=== PATIENT | female | born 1960 | race Caucasian/White ===

== ENCOUNTER → 2016-07-27 | Outpatient (CLI) | payer OTHER ==
[~2016-07-27] MED LIST: ALBU17AE3; BUTA1TAB55 PO; EST1.25T; ESTROGEN; LISI20TA PO; LSNP10T; SULF1TAB38
--- NOTE | 2016-07-28 13:49 | Diagnostic Imaging Report ---
EXAMINATION: Bilateral screening mammogram with a Computer Aided Detection (CAD) system. INDICATION: Screening. PERSONAL HISTORY: No current complaints stated on the questionnaire. COMPARISON: 04/15/2015. FINDINGS: The breasts are composed of heterogeneously dense parenchyma which may decrease mammographic sensitivity. Benign-appearing calcifications are seen. Allowing for technique and positional differences, no suspicious change is seen. IMPRESSION: No significant change. ACR BI-RADS Category 2: Benign findings. Result letter will be mailed to the patient. Note: At least 10% of breast cancer is not imaged by mammography. Dictated by: Dictated on workstation # [id number]
== END ==
LOC: RAD 11:39
PROVIDERS: ATTEND Internal Medicine
DX: Z12.31 Encounter for screening mammogram for malignant neoplasm of breast (principal)
CPT/HCPCS: 77067

== ENCOUNTER → 2016-08-10 | Outpatient (CLI) | payer OTHER ==
--- NOTE | 2016-08-10 15:38 | Diagnostic Imaging Report ---
PROCEDURE: CT abdomen and pelvis without contrast. TECHNIQUE: Multiple contiguous axial images were obtained through the abdomen and pelvis without the use of intravenous contrast. INDICATION: Left lower quadrant pain. FINDINGS: The lung bases demonstrate no significant abnormality. The liver demonstrates significant areas of hypodensity in geographic distribution favored to be related to fatty infiltration. The spleen is not enlarged. The pancreas and the adrenal glands appear unremarkable. Fluid-attenuation lesion measuring 4.7 cm is seen in the upper pole of the right kidney likely related to a simple cyst. Other low-attenuation foci in the kidneys are probably also cystic. These lesions however are incompletely characterized on this unenhanced exam, and evaluation with ultrasound for confirmation of the cystic nature is suggested. The left kidney demonstrates an upper pole nonobstructing 4-mm stone. There is no hydronephrosis. No ureteric or bladder stones. There are radiopaque markers near the groin area bilaterally and around the urinary bladder. Correlate with past surgical history. There is suggestion of prior hysterectomy. There is mild thickening in the sigmoid colon with no significant surrounding inflammatory changes. No evidence of diverticulitis. A few diverticula are seen. This is favored to be related to a nonspecific colitis. Followup colonoscopy is suggested to rule out other mucosal lesion. The appendix is normal. The abdominal aorta is normal in caliber. No para-aortic significantly enlarged lymph node. No significant free fluid or fluid collection in the abdomen or pelvis. The osseous structures demonstrate degenerative changes in the lower lumbar spine and sacroiliac joints. IMPRESSION: 1. Relatively long segment of wall thickening in the sigmoid colon is seen, may relate to inflammatory or infectious colitis. Endoscopic evaluation is suggested. 2. Geographic large areas of hypodensity in the liver likely related to fatty infiltration. 3. Non-obstructive 4-mm upper pole left kidney stone. Report was faxed to office of Dr. Perez @ 3:37 PM/rene. Dictated by: Dictated on workstation # [id number]
== END ==
LOC: RAD 12:16
PROVIDERS: ATTEND Surgery
DX: N20.0 Calculus of kidney (principal)
CPT/HCPCS: 74176

== ENCOUNTER 2016-08-26 06:01 | Outpatient (CLI) | payer OTHER ==
[~2016-08-26] VITALS: Ht 157.5 cm; Wt 90.7 kg
[2016-08-26] MEDS ORDERED: OMEP20TA33 PO (10:12)
== END 2016-08-26 10:33 ==
LOC: PREOP 06:01
PROVIDERS: ATTEND Surgery
DX: Z01.818 Encounter for other preprocedural examination (principal); K63.9 Disease of intestine, unspecified

== ENCOUNTER 2016-08-30 09:11 | Day surgery (SDC) | payer OTHER ==
[~2016-08-30] VITALS: Ht 157.5 cm; Wt 90.7 kg
[~2016-08-30 09:11] MED LIST changes: +OMEP20TA33 PO
[2016-08-30] MEDS ORDERED: FLUMAZENIL (ROMAZICON) 0.1 MG/ML 5 ML VIAL INJ PRN (09:30)
[2016-08-30] MEDS ORDERED: NALOXONE 0.4 MG/ML 1 ML (NARCAN) VIAL IVP PRN (09:30)
[2016-08-30] MEDS ORDERED: NS IV 500 ML 500 ML IV PRN (09:40)
[2016-08-30 09:44] VITALS: BP 157/85
--- NOTE | 2016-08-30 10:02 | Conscious Sedation/ASA ---
Conscious Sedation Pre-Proced Time Reviewed: 10:02 ASA Class: 2 Airway Mallampati Classification: (twenty-nine palms appropriate class) I. II. III, IV Lungs Heart ASA score ASA 1: a normal healthy patient ASA 2: a patient with a mild systemic disease (mid diabetes, controlled hypertension, obesity ASA 3: a patient with a severe systemic disease that limits activity (angina , COPD, prior Myocardial infarction) ASA 4: a patient with an incapacitating disease that is a constant threat to life (CHF, renal failure) ASA 5: a moribund patient not expected to survive 24 hrs. (ruptured aneurysm) ASA 6: a declared brain patient whose organs are being harvested. For emergent operations, add the letter E after the classification Grade 2 Sedation Plan: Discussed options with patient/fam Note The patient is an appropriate candidate to undergo the planned procedure, sedation, and anesthesia. The patient immediately re-assessed prior to indication. ADRIANA ALFREDO MD Aug 30, 2016 10:02 am
[2016-08-30] MEDS ORDERED: MIDAZOLAM 2 MG/2 ML (VERSED) VIAL ONE ×3 (11:06)
[2016-08-30] MEDS ORDERED: fentaNYL INJECTION 100 MCG/2 ML AMP ONE ×2 (11:06)
[2016-08-30] MEDS: fentaNYL INJECTION 100 MCG/2 ML AMP IVP PRN ×3 (11:13→11:20)
[2016-08-30] MEDS: MIDAZOLAM 2 MG/2 ML (VERSED) VIAL IVP PRN ×3 (11:14→11:18)
--- NOTE | 2016-08-30 11:34 | Endoscopy Procedure Report ---
Endoscopy Report Date: Aug 30, 2016 Preoperative Diagnosis: Left lower quadrant pain. Abnormal CT Study Performed: Colonoscopy Procedure Instrument: Colonoscope Endo Procedure/Findings Findings 1.: Diverticulitis Copy Copies To 1: CHERELLE CABRAL XAVIER M MD Aug 30, 2016 11:34 am
--- NOTE | 2016-08-30 11:35 | Discharge Inst-Simple/Standard ---
Discharge Inst-Standard Discharge Medications New, Converted or Re-Newed RX: RX on Chart Patient Instructions/Follow Up Plan of Care/Instructions/FU: Please call for Flagyl 500 mg 3 times a day for 1 week with no refill to her pharmacy ; follow up with me in 3 weeks Activity as Tolerated: Yes Discharge Diet: No Restrictions ADRIANA ALFREDO MD Aug 30, 2016 11:35 am
[2016-08-30 11:55] VITALS: BP 143/74
[2016-08-30 12:25] VITALS: BP 163/96
[2016-08-30 12:50] VITALS: BP 163/96
--- NOTE | 2016-08-31 05:05 | OPERATIVE REPORT ---
DATE OF SERVICE: 08/30/2016 PROCEDURE: Colonoscopy. SURGEON: Adriana Alfredo MD INDICATION FOR PROCEDURE: This lady reported pain over the left side of the abdomen and the groin. Hernia was ruled out by clinical examination and a CT scan. This study, however, showed thickening of the sigmoid colon. Therefore, colonoscopy was felt to be reasonable. Informed consent was obtained after reviewing the procedure in detail. DESCRIPTION OF PROCEDURE: She was placed in left lateral decubitus position and her vital signs were monitored. Conscious sedation was achieved using Versed and fentanyl. Digital rectal examination was unremarkable. The colonoscope was then introduced into the rectum and advanced all the way up to the cecum. The scope was then withdrawn slowly and the mucosa examined in a systematic fashion. FINDINGS: Sigmoid diverticulosis with erythema around some of the diverticulae, indicating resolving diverticulitis. The rest of the colon was normal. She tolerated the procedure well and was taken back to the nursing area in a stable condition. IMPRESSION: Left lower quadrant pain, possibly due to resolving diverticulitis. We will treat conservatively. Job ID: [id number] DocumentID: [id number] Dictated Date: 08/30/2016 11:32:31 Log Hooker Date: 08/30/2016 12:46:41 Dictated By: ADRIANA ALFREDO MD MTDD
== END 2016-08-30 12:50 | disposition home or self-care (01) ==
LOC: ENDO 09:11
PROVIDERS: ATTEND Surgery
DX: K57.30 Diverticulosis of large intestine without perforation or abscess without bleeding (principal); R10.32 Left lower quadrant pain

== ENCOUNTER → 2016-12-23 | Outpatient (CLI) | payer OTHER ==
[~2016-12-23] MED LIST changes: +ASPI325T32 PO; +ATOR40TA PO; +ESTR-44 TD; +IOHEXOL 350 MG/ML 100 ML (OMNIPAQUE 350) VIAL IV ONE; +NS 100 ML (IVPB) BAG IV ONE; +PROG100C6 PO
--- NOTE | 2016-12-23 10:56 | Diagnostic Imaging Report ---
PROCEDURE: CT chest, abdomen, and pelvis with and without contrast. TECHNIQUE: Precontrast images were obtained of the chest, abdomen, and pelvis. Multiple contiguous axial images were obtained through the chest, abdomen, and pelvis after administration of intravenous contrast. INDICATION: Abdominal pain. Evaluate for pulmonary nodules. COMPARISON: 08/10/2016 FINDINGS: CT CHEST: There is a pulmonary nodule in the right upper lobe measuring 5 mm in size with high density suggestive of calcified component in favor of a calcified granuloma. This is seen just anteriorly, axial image 12. Minimal subsegmental atelectasis is seen in the medial aspect of the right middle lobe. The left lung demonstrates no significant consolidation, or mass. There is minimal atelectasis in the left lung base. The heart size is normal. No pericardial or pleural effusion. There is no lymphadenopathy in the mediastinum, the trevor or in the axilla. The osseous structures demonstrate minimal degenerative changes in the thoracic spine. CT ABDOMEN AND PELVIS: The liver, the spleen, the pancreas, the gallbladder and the adrenal glands appear unremarkable. The kidneys have symmetric enhancement and contrast excretion. 2 mm nonobstructive stone in the upper left kidney is seen. There is no hydronephrosis. There are multiple bilateral renal cysts seen with no solid component identified. These are up to 4.1 cm in size in the upper pole of the right kidney. The abdominal aorta is normal in caliber. No para-aortic significantly enlarged lymph node is seen. Occasional colonic diverticula are seen with no evidence of diverticulitis. The appendix appears unremarkable. No significant free fluid or fluid collection in the abdomen or pelvis is seen. The urinary bladder appears unremarkable. There is suggestion of prior hysterectomy. There are radiopaque markers near the floor of the pelvis, and may relate to prior pelvic floor surgery. Correlate with surgical history. The osseous structures demonstrate mild degenerative changes in the SI joints. IMPRESSION: CT CHEST: A 5 mm relatively dense nodule in the right upper lobe is likely a calcified granuloma. No significant consolidation or suspicious nodule is seen otherwise. CT ABDOMEN AND PELVIS: 1. Mild diverticulosis. No diverticulitis. 2. Nonobstructive upper pole left kidney stone measuring 2 mm. Dictated by: Dictated on workstation # [id number]
--- NOTE | 2016-12-23 13:27 | Diagnostic Imaging Report ---
Ultrasound of the liver. INDICATION: Abdominal pain. FINDINGS: The liver demonstrates increased echogenicity compatible with fatty infiltration. No focal lesion is seen. Hepatopetal flow in the portal vein is seen. The CBD is 7 mm in caliber. The gallbladder demonstrates no stones or wall thickening. The visualized portions of the pancreas appear unremarkable. The right kidney is 9.9 cm in length. There is no hydronephrosis. A minimally complicated cyst with septation is seen in the upper pole measuring 5.7 cm with no solid component seen otherwise. No fluid collection in the upper right abdomen seen. Sonographic Chacon's sign is reportedly negative. IMPRESSION: 1. Liver echogenicity is suggestive of fatty infiltration. 2. No gallstones or evidence of cholecystitis. Dictated by: Dictated on workstation # [id number]
== END ==
LOC: RAD 08:26
PROVIDERS: ATTEND Nurse Practitioner Family
DX: R10.84 Generalized abdominal pain (principal)
CPT/HCPCS: 71270; 74178; 76705

== ENCOUNTER 2017-02-09 10:16 | Observation (INO) | payer OTHER ==
[~2017-02-09] VITALS: Ht 157.5 cm; Wt 93.4 kg
[~2017-02-09 10:16] MED LIST changes: -ASPI325T32 PO; -ATOR40TA PO; -ESTR-44 TD; -IOHEXOL 350 MG/ML 100 ML (OMNIPAQUE 350) VIAL IV ONE; -NS 100 ML (IVPB) BAG IV ONE; -PROG100C6 PO
--- OUTSIDE RECORDS SUMMARY | 2017-02-09 10:34 | XMS REPORT | Continuity of Care Document ---
Author Author [facility] Organization [facility] Address Unknown Phone Unavailable Allergies Active Description Code Type Severity Reaction Onset Reported/Identified Relationship to Patient Clinical Status Yes No Known Drug Allergies [id number] Drug Allergy Unknown N/ A 08/30/2016 Medications Problems Date Dx Coded Attending Type Code Diagnosis Diagnosed By 01/10/2012 Ot 562.10 DIVERTICULOSIS COLON (W/O MENT OF HEMORR 01/10/2012 Ot V76.51 SCREEN MAL NEOP-COLON 03/01/2013 ETIENNE PATEL MD Ot 786.50 03/01/2013 ETINENE PATEL MD Ot V04.81 05/20/2014 NORM CABRAL Ot V76.12 06/20/2014 Ot V76.12 06/20/2014 Ot V76.12 06/20/2014 Ot 782.3 06/20/2014 Ot 785.2 06/20/2014 Ot 786.09 06/20/2014 Ot V72.84 06/20/2014 Ot 241.1 06/20/2014 Ot V76.12 06/20/2014 Ot 780.50 06/20/2014 Ot 786.09 06/20/2014 CHERELLE CABRAL DO Ot 786.50 06/20/2014 DELISA VILLA DO Ot V76.12 06/20/2014 Ot V76.12 06/20/2014 Ot V76.12 06/20/2014 Ot 782.3 06/20/2014 Ot 785.2 06/20/2014 Ot 786.09 06/20/2014 Ot V72.84 06/20/2014 Ot 241.1 06/20/2014 Ot V76.12 06/20/2014 Ot 780.50 06/20/2014 Ot 786.09 06/20/2014 CHERELLE CABRAL DO Ot 786.50 06/20/2014 DELISA VILLA DO Ot V76.12 06/27/2014 Ot V76.12 06/27/2014 Ot V76.12 06/27/2014 Ot 782.3 06/27/2014 Ot 785.2 06/27/2014 Ot 786.09 06/27/2014 Ot V72.84 06/27/2014 Ot 241.1 06/27/2014 Ot V76.12 06/27/2014 Ot 780.50 06/27/2014 Ot 786.09 06/27/2014 CHERELLE CABRAL DO Ot 786.50 06/27/2014 DELISA VILLA DO Ot V76.12 11/05/2014 NORM CABRAL Ot V76.12 04/15/2015 Ot V76.12 04/15/2015 Ot 782.3 04/15/2015 Ot 785.2 04/15/2015 Ot 786.09 04/15/2015 Ot V72.84 04/15/2015 Ot 241.1 04/15/2015 Ot V76.12 04/15/2015 Ot 780.50 04/15/2015 Ot 786.09 04/15/2015 CHERELLE CABRAL DO Ot 786.50 04/15/2015 DELISA VILLA DO Ot V76.12 07/02/2015 JOHN REID DO Ot M25.511 11/28/2015 Ot V76.12 OTH SCREEN MAMMO-MALIGN NEOPLASM OF MONALISA 11/28/2015 Ot 782.3 EDEMA 11/28/2015 Ot 785.2 CARDIAC MURMURS NEC 11/28/2015 Ot 786.09 RESPIRATORY ABNORM NEC 11/28/2015 Ot V72.84 EXAM PRE-OPERATIVE NOS 11/28/2015 Ot 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 11/28/2015 Ot V76.12 OTH SCREEN MAMMO-MALIGN NEOPLASM OF MONALISA 11/28/2015 Ot 780.50 SLEEP DISTURBANCE NOS 11/28/2015 Ot 786.09 RESPIRATORY ABNORM NEC 11/28/2015 CHERELLE CABRAL DO Ot 786.50 CHEST PAIN NOS 11/28/2015 DELISA VILLA DO Ot V76.12 OTH SCREEN MAMMO-MALIGN NEOPLASM OF MONALISA 11/28/2015 CHERELLE CABRAL DO Ot Z12.31 ENCNTR SCREEN MAMMOGRAM FOR MALIGNANT NE 11/28/2015 JOHN REID DO Ot M25.511 PAIN IN RIGHT SHOULDER 12/04/2015 Ot V76.12 OTH SCREEN MAMMO-MALIGN NEOPLASM OF MONALISA 12/04/2015 Ot 782.3 EDEMA 12/04/2015 Ot 785.2 CARDIAC MURMURS NEC 12/04/2015 Ot 786.09 RESPIRATORY ABNORM NEC 12/04/2015 Ot V72.84 EXAM PRE-OPERATIVE NOS 12/04/2015 Ot 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 12/04/2015 Ot V76.12 OTH SCREEN MAMMO-MALIGN NEOPLASM OF MONALISA 12/04/2015 Ot 780.50 SLEEP DISTURBANCE NOS 12/04/2015 Ot 786.09 RESPIRATORY ABNORM NEC 12/04/2015 CHERELLE CABRAL DO Ot 786.50 CHEST PAIN NOS 12/04/2015 DELISA VILLA DO Ot V76.12 OTH SCREEN MAMMO-MALIGN NEOPLASM OF MONALISA 12/04/2015 CHERELLE CABRAL DO Ot Z12.31 ENCNTR SCREEN MAMMOGRAM FOR MALIGNANT NE 12/04/2015 JOHN REID DO Ot M25.511 PAIN IN RIGHT SHOULDER 07/26/2016 Ot 782.3 EDEMA 07/26/2016 Ot 785.2 CARDIAC MURMURS NEC 07/26/2016 Ot 786.09 RESPIRATORY ABNORM NEC 07/26/2016 Ot V72.84 EXAM PRE-OPERATIVE NOS 07/26/2016 Ot 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 07/26/2016 Ot V76.12 OTH SCREEN MAMMO-MALIGN NEOPLASM OF MONALISA 07/26/2016 Ot 780.50 SLEEP DISTURBANCE NOS 07/26/2016 Ot 786.09 RESPIRATORY ABNORM NEC 07/26/2016 CHERELLE CABRAL DO Ot 786.50 CHEST PAIN NOS 07/26/2016 DELISA VILLA DO Ot V76.12 OTH SCREEN MAMMO-MALIGN NEOPLASM OF MONALISA 07/26/2016 CHERELLE CABRAL DO Ot Z12.31 ENCNTR SCREEN MAMMOGRAM FOR MALIGNANT NE 07/26/2016 JOHN REID DO Ot M25.511 PAIN IN RIGHT SHOULDER 07/26/2016 Ot 782.3 EDEMA 07/26/2016 Ot 785.2 CARDIAC MURMURS NEC 07/26/2016 Ot 786.09 RESPIRATORY ABNORM NEC 07/26/2016 Ot V72.84 EXAM PRE-OPERATIVE NOS 07/26/2016 Ot 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 07/26/2016 Ot V76.12 OTH SCREEN MAMMO-MALIGN NEOPLASM OF MONALISA 07/26/2016 Ot 780.50 SLEEP DISTURBANCE NOS 07/26/2016 Ot 786.09 RESPIRATORY ABNORM NEC 07/26/2016 CHERELLE CABRAL DO Ot 786.50 CHEST PAIN NOS 07/26/2016 DELISA VILLA DO Ot V76.12 OTH SCREEN MAMMO-MALIGN NEOPLASM OF MONALISA 07/26/2016 CHERELLE CABRAL DO Ot Z12.31 ENCNTR SCREEN MAMMOGRAM FOR MALIGNANT NE 07/26/2016 ROSI REID DONT L Ot M25.511 PAIN IN RIGHT SHOULDER 07/27/2016 Ot 782.3 EDEMA 07/27/2016 Ot 785.2 CARDIAC MURMURS NEC 07/27/2016 Ot 786.09 RESPIRATORY ABNORM NEC 07/27/2016 Ot V72.84 EXAM PRE-OPERATIVE NOS 07/27/2016 Ot 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 07/27/2016 Ot V76.12 OTH SCREEN MAMMO-MALIGN NEOPLASM OF MONALISA 07/27/2016 Ot 780.50 SLEEP DISTURBANCE NOS 07/27/2016 Ot 786.09 RESPIRATORY ABNORM NEC 07/27/2016 CHERELLE CABRAL DO Ot 786.50 CHEST PAIN NOS 07/27/2016 DELISA VILLA DO Ot V76.12 OTH SCREEN MAMMO-MALIGN NEOPLASM OF MONALISA 07/27/2016 CHERELLE CABRAL DO Ot Z12.31 ENCNTR SCREEN MAMMOGRAM FOR MALIGNANT NE 07/27/2016 ROSI REID DONT L Ot M25.511 PAIN IN RIGHT SHOULDER 07/28/2016 CHERELLE CABRAL DO Ot Z12.31 ENCNTR SCREEN MAMMOGRAM FOR MALIGNANT NE 07/28/2016 CHERELLE CABRAL DO Ot Z12.31 ENCNTR SCREEN MAMMOGRAM FOR MALIGNANT NE 07/28/2016 CHERELLE CABRAL DO Ot Z12.31 ENCNTR SCREEN MAMMOGRAM FOR MALIGNANT NE 08/11/2016 CHERELLE CABRAL DO Ot Z12.31 ENCNTR SCREEN MAMMOGRAM FOR MALIGNANT NE 08/25/2016 SAYDA ADLER, ADRIANA Burt Ot N20.0 CALCULUS OF KIDNEY 08/26/2016 SAYDA ADLER, ADRIANA Burt Ot K63.9 DISEASE OF INTESTINE, UNSPECIFIED 08/26/2016 SAYDA DALER, ADRIANA Burt Ot Z01.818 ENCOUNTER FOR OTHER PREPROCEDURAL EXAMIN 08/27/2016 ADRIANA ALFREDO MD Ot K63.9 DISEASE OF INTESTINE, UNSPECIFIED 08/27/2016 ADRIANA ALFREDO MD Ot Z01.818 ENCOUNTER FOR OTHER PREPROCEDURAL EXAMIN 08/30/2016 ADRIANA ALFREDO MD Ot N20.0 CALCULUS OF KIDNEY 08/30/2016 SAYDA ADLER, ADRIANA Burt Ot K57.30 DVRTCLOS OF LG INT W/O PERFORATION OR AB 08/30/2016 ADRIANA ALFREDO MD Ot R10.32 LEFT LOWER QUADRANT PAIN 08/31/2016 ADRIANA ALFREDO MD Ot K57.30 DVRTCLOS OF LG INT W/O PERFORATION OR AB 08/31/2016 ADRIANA ALFREDO MD Ot R10.32 LEFT LOWER QUADRANT PAIN 09/02/2016 ADRIANA ALFREDO MD, Ot K63.9 DISEASE OF INTESTINE, UNSPECIFIED 09/02/2016 SAYDA ADLER, ADRIANA Burt Ot Z01.818 ENCOUNTER FOR OTHER PREPROCEDURAL EXAMIN 10/19/2016 Ot V72.84 EXAM PRE-OPERATIVE NOS 10/19/2016 Ot 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 10/19/2016 Ot V76.12 OTH SCREEN MAMMO-MALIGN NEOPLASM OF MONALISA 10/19/2016 Ot 780.50 SLEEP DISTURBANCE NOS 10/19/2016 Ot 786.09 RESPIRATORY ABNORM NEC 10/19/2016 CHERELLE CABRAL DO Ot 786.50 CHEST PAIN NOS 10/19/2016 DELISA VILLA DO Ot V76.12 OTH SCREEN MAMMO-MALIGN NEOPLASM OF MONALISA 10/19/2016 CHERELLE CABRAL DO Ot Z12.31 ENCNTR SCREEN MAMMOGRAM FOR MALIGNANT NE 10/19/2016 JOHN REID DO Ot M25.511 PAIN IN RIGHT SHOULDER 10/19/2016 CHERELLE CABRAL DO Ot Z12.31 ENCNTR SCREEN MAMMOGRAM FOR MALIGNANT NE 12/23/2016 ADRIANA ALFREDO MD Ot N20.0 CALCULUS OF KIDNEY 01/05/2017 NORM CABRAL Ot R10.84 GENERALIZED ABDOMINAL PAIN Procedures Results Encounters ACCT No. Visit Date/Time Discharge Status Pt. Type Provider Facility Loc./Unit Complaint [id number] 01/11/2017 16:28:00 2016 23:59:59 CLS Preadmit CHERELLE CABRAL DO [facility] RAD SCREENING [id number] 12/23/2016 08:26:00 2016 23:59:59 CLS Outpatient NORM CABRAL SCLEROSCOPE TESTER [facility] RAD ABD PAIN, ABN LABS [id number] 08/30/2016 09:11:00 2016 12:50:00 DIS Outpatient ADRIANA ALFREDO MD [facility] ENDO ABNORMAL CT/SIGMOID THICKENING [id number] 08/26/2016 06:01:00 2016 10:33:00 DIS Outpatient ADRIANA ALFREDO MD [facility] PREOP ABDNORMAL CT/SIGMOID THICKENING [id number] 08/10/2016 12:16:00 2016 23:59:59 CLS Outpatient ADRIANA ALFREDO MD [facility] RAD LLQ PAIN [id number] 07/27/2016 11:39:00 2016 23:59:59 CLS Outpatient CHERELLE CABRAL DO [facility] RAD SCREENING [id number] 06/24/2015 13:01:00 2015 23:59:59 CLS Outpatient JOHN REID DO [facility] RAD RT SHOULDER PAIN AND WEAKNESS [id number] 04/15/2015 08:55:00 2015 23:59:59 CLS Outpatient CHERELLE CABRAL DO [facility] RAD SCREENING [id number] 01/03/2014 08:02:00 2013 23:59:59 CLS Outpatient DELISA VILLA DO [facility] RAD SCREENING [id number] 07/20/2013 07:29:00 2013 23:59:59 CLS Outpatient CHERELLE CABRAL DO [facility] CARD CP [id number] 03/01/2013 08:20:00 2012 11:05:00 DIS Emergency AMANDA ADLER, ETIENNE Estrada [facility] ER [id number] 12/07/2012 10:52:00 2012 23:59:59 CLS Outpatient NORM CABRAL [facility] RAD [id number] 01/10/2012 07:50:00 Document Registration [id number] 01/07/2012 08:09:00 Document Registration [id number] 12/09/2011 20:10:00 Document Registration [id number] 11/12/2011 10:46:00 Document Registration [id number] 11/12/2011 10:14:00 Document Registration [id number] 04/29/2011 10:14:00 Document Registration [id number] 10/08/2010 11:14:00 Document Registration [id number] 09/08/2009 10:33:00 Document Registration
[2017-02-09 11:00] LABS: BASOPHILS % (AUTO) 1 % (0-10); EOSINOPHILS # (AUTO) 0.1 10^3/uL (0.0-0.3); EOSINOPHILS % (AUTO) 1 % (0-10); LYMPHOCYTES # (AUTO) 1.5 X 10^3 (1.0-4.0); LYMPHOCYTES % (AUTO) 21 % (12-44); MEAN CORPUSCULAR HEMOGLOBIN 29 PG (25-34); MEAN CORPUSCULAR HGB CONC 34 G/DL (32-36); MEAN CORPUSCULAR VOLUME 84 FL (80-99); MEAN PLATELET VOLUME 9.8 FL (7.4-10.4); MONOCYTES # (AUTO) 0.5 X 10^3 (0.0-1.0); MONOCYTES % (AUTO) 7 % (0-12); NEUTROPHILS # (AUTO) 4.9 X 10^3 (1.8-7.8); NEUTROPHILS % (AUTO) 70 % (42-75); PLATELET COUNT 223 10^3/uL (130-400); RED BLOOD COUNT 5.14 10^6/uL (4.35-5.85); RED CELL DISTRIBUTION WIDTH 14.5 % (10.0-14.5)
[2017-02-09 11:04] LABS: INR 0.9 (0.8-1.4); PROTHROMBIN TIME PATIENT 12.2 SEC (12.2-14.7)
--- NOTE | 2017-02-09 11:12 | Diagnostic Imaging Report ---
INDICATION: Left-sided chest pain. FINDINGS: The right lung is clear. There is mild opacity in the left lung base which may be overlying soft tissue attenuation or subtle focal left basilar infiltrate. Lungs otherwise clear. Cardiomediastinal and hilar contour is normal. IMPRESSION: No convincing acute pathology. Vague opacity in the left lung base probably superimposition, however small focus of pneumonia could not be definitively excluded. Otherwise negative. Dictated by: Dictated on workstation # [id number]
[2017-02-09 11:14] LABS: ALANINE AMINOTRANSFERASE 26 U/L (0-55); ALBUMIN 4.1 GM/DL (3.2-4.5); ANION GAP 10 MMOL/L (5-14); ASPARTATE AMINO TRANSFERASE 22 U/L (5-34); BILIRUBIN,TOTAL 0.5 MG/DL (0.1-1.0); BLOOD UREA NITROGEN 24 MG/DL (7-18); BUN/CREATININE RATIO 33; CALCIUM 9.5 MG/DL (8.5-10.1); CARBON DIOXIDE 24 MMOL/L (21-32); CHLORIDE 101 MMOL/L (98-107); CREATININE SERUM 0.73 MG/DL (0.60-1.30); GFR ESTIMATED > 60; GLUCOSE 92 MG/DL (70-105); MAGNESIUM 1.9 MG/DL (1.8-2.4); POTASSIUM 3.8 MMOL/L (3.6-5.0); SODIUM 135 MMOL/L (135-145); TOTAL PROTEIN 7.4 GM/DL (6.4-8.2)
[2017-02-09 11:21] LABS: MYOGLOBIN SERUM 20.8 NG/ML (10.0-92.0)
[2017-02-09] MEDS ORDERED: ASPIRIN 81 MG CHEW (CHILDREN'S ASA) PO ONE (11:45)
[2017-02-09] MEDS ORDERED: NITROGLYCERIN 0.4 MG SL TABS BTL 25'S SL PRN ×2 (11:45→15:30)
--- NOTE | 2017-02-09 12:25 | ED Chest Pain ---
General Chief Complaint: Chest Pain Stated Complaint: CHEST PAIN Nursing Triage Note: PT CO OF CHEST PAIN STARTED APPROX 1 WEEK AGO, PT SENT FROM [facility]. CO OF L CHEST PAIN L SHOULDER PAIN. 08/04 Nursing Sepsis Screen: No Definite Risk Source: patient Exam Limitations: no limitations History of Present Illness Time seen by provider: 10:20 Initial Comments This 56-year-old woman presents to emergency room with intermittent chest pain for about one week. Chest pain this morning started around 06:30. It is sometimes sharp and sometimes dull. She cannot identify any exacerbating or alleviating factors. Her only significant risk factors for heart disease are hypertension and a questionable family history of heart disease in her father who is suspected of having an NV in his 50s. He never required any interventions. She denies any lower extremity symptoms. Pain does not change with deep breathing. Allergies and Home Medications Allergies Coded Allergies: No Known Drug Allergies (Verified , 08/30/16) Home Medications Estradiol 1 Each Patch.tdsw, 0.1 MG TD Th, (Reported) Lisinopril 20 Mg Tablet, 20 MG PO DAILY, (Reported) Omeprazole Magnesium 20 Mg Tablet.dr, 20 MG PO DAILY PRN for HEARTBURN, ( Reported) Progesterone,Micronized 100 Mg Capsule, 100 MG PO HS, (Reported) Review of Systems Constitutional: no symptoms reported EENTM: No Symptoms Reported Respiratory: No Symptoms Reported Cardiovascular: See HPI Gastrointestinal: No Symptoms Reported Genitourinary: No Symptoms Reported Musculoskeletal: no symptoms reported Skin: no symptoms reported Psychiatric/Neurological: No Symptoms Reported Endocrine: No Symptoms Reported Past Ankhino-Edqhji-Zihghl Hx Patient Social History Alcohol Use: Denies Use Recreational Drug Use: No Smoking Status: Never a Smoker Recent Foreign Travel: No Contact w/Someone Who Travel: No Recent Infectious Disease Expo: No Recent Hopitalizations: No Physical Abuse: No Sexual Abuse: No Seasonal Allergies Seasonal Allergies: No Surgeries History of Surgeries: Yes (CS X2) Surgeries: Section, Hysterectomy Respiratory History of Respiratory Disorde: No Cardiovascular History of Cardiac Disorders: Yes Cardiac Disorders: Hypertension Neurological History of Neurological Disord: No Reproductive System : No Hx Reproductive Disorders: No Sexually Transmitted Disease: No HIV/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 Genitourinary History of Genitourinary Disor: Yes Genitourinary Disorders: Kidney Stones Gastrointestinal History of Gastrointestinal Di: Yes Gastrointestinal Disorders: Gastroesophageal Reflux Musculoskeletal History of Musculoskeletal Dis: No Endocrine History of Endocrine Disorders: Yes (RADIATION ON THYROID) Endocrine Disorders: Hyperthyroidism HEENT Loss of Vision: Bilateral Hearing Impairment: Denies Cancer History of Cancer: No Psychosocial History of Psychiatric Problem: No Suicide Risk Score: 0 Integumentary History of Skin or Integumenta: No Blood Transfusions History of Blood Disorders: No Adverse Reaction to a Blood Tr: No (N/A) Family Medical History Significant Family History: Heart Disease Physical Exam Vital Signs Vital Sign - Last 12Hours 02/09/17 10:16 Temp 97.9 Pulse 73 Resp 18 B/P (MAP) 159/79 Pulse Ox 95 O2 Delivery Room Air Capillary Refill : Less Than 3 Seconds General Appearance: No Apparent Distress HEENT: PERRL/EOMI, Normal ENT Inspection Neck: Normal Inspection Respiratory: Chest Non Tender, Lungs Clear, Normal Breath Sounds, No Accessory Muscle Use, No Respiratory Distress Cardiovascular: Regular Rate, Rhythm, No Edema, No Murmur, Normal Peripheral Pulses Gastrointestinal: Normal Bowel Sounds, Non Tender, Soft Extremity: Normal Inspection, Non Tender, No Calf Tenderness, No Pedal Edema, Other (Negative Gladys) Neurologic/Psychiatric: Alert, Oriented x3, No Motor/Sensory Deficits, Normal 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, 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 Skin: Normal Color, Warm/Dry Progress/Results/Core Measures Results/Orders Lab Results Laboratory Tests Test 02/09/17 10:30 Range/Units White Blood Count 7.0 4.3-11.0 10^3/uL Red Blood Count 5.14 4.35-5.85 10^6/uL Hemoglobin 14.8 11.5-16.0 G/DL Hematocrit 43 35-52 % Mean Corpuscular Volume 84 80-99 FL Mean Corpuscular Hemoglobin 29 25-34 PG Mean Corpuscular Hemoglobin Concent 34 32-36 G/DL Red Cell Distribution Width 14.5 10.0-14.5 % Platelet Count 223 130-400 10^3/uL Mean Platelet Volume 9.8 7.4-10.4 FL Neutrophils (%) (Auto) 70 42-75 % Lymphocytes (%) (Auto) 21 12-44 % Monocytes (%) (Auto) 7 0-12 % Eosinophils (%) (Auto) 1 0-10 % Basophils (%) (Auto) 1 0-10 % Neutrophils # (Auto) 4.9 1.8-7.8 X 10^3 Lymphocytes # (Auto) 1.5 1.0-4.0 X 10^3 Monocytes # (Auto) 0.5 0.0-1.0 X 10^3 Eosinophils # (Auto) 0.1 0.0-0.3 10^3/uL Basophils # (Auto) 0.0 0.0-0.1 10^3/uL Prothrombin Time 12.2 12.2-14.7 SEC INR Comment 0.9 0.8-1.4 Activated Partial Thromboplast Time 31 24-35 SEC Sodium Level 135 135-145 MMOL/L Potassium Level 3.8 3.6-5.0 MMOL/L Chloride Level 101 98-107 MMOL/L Carbon Dioxide Level 24 21-32 MMOL/L Anion Gap 10 5-14 MMOL/L Blood Urea Nitrogen 24 H 7-18 MG/DL Creatinine 0.73 0.60-1.30 MG/DL Estimat Glomerular Filtration Rate > 60 BUN/Creatinine Ratio 33 Glucose Level 92 70-105 MG/DL Calcium Level 9.5 8.5-10.1 MG/DL Magnesium Level 1.9 1.8-2.4 MG/DL Total Bilirubin 0.5 0.1-1.0 MG/DL Aspartate Amino Transf (AST/SGOT) 22 5-34 U/L Alanine Aminotransferase (ALT/SGPT) 26 0-55 U/L Alkaline Phosphatase 72 40-136 U/L Myoglobin 20.8 10.0-92.0 NG/ML Troponin I < 0.30 <0.30 NG/ML C-Reactive Protein High Sensitivity 1.26 H 0.00-0.50 MG/DL Total Protein 7.4 6.4-8.2 GM/DL Albumin 4.1 3.2-4.5 GM/DL My Orders Orders - DUNG RIVERO MD Ekg Tracing (02/09/17 10:22) Cbc With Automated Diff (02/09/17 10:55) Magnesium (02/09/17 10:55) Chest 1 View, Ap/Pa Only (02/09/17 10:55) Cardiac Profile 1 (02/09/17 10:55) Comprehensive Metabolic Panel (02/09/17 10:55) Myoglobin Serum (02/09/17 10:55) Protime With Inr (02/09/17 10:55) Partial Thromboplastin Time (02/09/17 10:55) O2 (02/09/17 10:55) Monitor-Rhythm Ecg Trace Only (02/09/17 10:55) Lipid Panel (02/10/17 06:00) Saline Lock/Iv-Start (02/09/17 10:55) Aspirin Chewable Tablet (Baby Aspirin Ch (02/09/17 11:45) Nitroglycerin 0.4 Mg Btl 25's (Nitrostat (02/09/17 11:45) Chest Pa/Lat (2 View) (02/09/17 12:16) Hs C Reactive Protein (02/09/17 12:25) Heart Healthy (02/09/17 Lunch) Medications Given in ED Current Medications Medications Dose Ordered Sig/David Route Start Time Stop Time Status Last Admin Dose Admin Aspirin 324 mg ONCE ONCE PO 02/09/17 11:45 02/09/17 11:46 DC 02/09/17 11:47 324 MG Nitroglycerin 0.4 mg UD PRN SL 02/09/17 11:45 02/09/17 15:15 DC 02/09/17 11:48 0.4 MG Vital Signs/I&O Vital Sign - Last 12Hours 02/09/17 10:16 Temp 97.9 Pulse 73 Resp 18 B/P (MAP) 159/79 Pulse Ox 95 O2 Delivery Room Air Blood Pressure Mean: 105 Progress Note #1: Time: 12:24 Progress Note Patient's pain has improved some but she still has some lingering pain. She is uncertain if the nitroglycerin really help the pain. There is questionable infiltrate on the left lower lung on single view x-ray. X-ray will be repeated with 2 views in the radiology department for clarification. Progress Note #2: Time: 14:26 Progress Note Repeat x-ray showed no acute problems. Patient still had a lingering chest pain throughout her ER visit. She was given options including a four-hour cardiac rule out versus admission for stress testing tomorrow. She elects for admission for stress testing. Case was reviewed with Dr. Campbell and Dr. Thorne. ECG Initial ECG Impression Date: Feb 09, 2017 Initial ECG Impression Time: 10:20 Initial ECG Rate: 74 Initial ECG Rhythm: Normal Sinus Initial ECG Intervals: Normal Initial ECG Impression: Normal Comment Normal sinus rhythm with no ST elevation or depression. Normal normal intervals or axis deviation. No changes from prior. Diagnostic Imaging Diagonstic Imaging: Xray Plain Films/CT/US/NM/MRI: chest Comments Single view chest x-ray viewed by me and report reviewed. See report below: NAME: LINDSAY FAIR [facility] REC#: [id number] PT STATUS: ADM [place] : 1960 PHYSICIAN: DUNG RIVERO MD ADMIT DATE: 02/09/17/ Signed Date of Exam: 02/09/17 CHEST 1 VIEW, AP/PA ONLY INDICATION: Left-sided chest pain. FINDINGS: The right lung is clear. There is mild opacity in the left lung base which may be overlying soft tissue attenuation or subtle focal left basilar infiltrate. Lungs otherwise clear. Cardiomediastinal and hilar contour is normal. IMPRESSION: No convincing acute pathology. Vague opacity in the left lung base probably superimposition, however small focus of pneumonia could not be definitively excluded. Otherwise negative. Dictated by: Dictated on workstation # [id number] Dict: 02/09/17 1106 Trans: 02/09/17 1526 Interpreted by: JIMMY DELCID Electronically signed by: JIMMY DELCID 02/09/17 1526 Diagonstic Imaging: Xray Plain Films/CT/US/NM/MRI: chest Comments Two-view chest x-ray for further evaluation viewed by me and report reviewed. See report below: NAME: LINDSAY FAIR [facility] REC#: [id number] PT STATUS: REG ER : 1960 PHYSICIAN: DUNG RIVERO MD ADMIT DATE: 02/09/17/ER Signed Date of Exam: 02/09/17 CHEST PA/LAT (2 VIEW) INDICATION: Left-sided chest pain PA and lateral chest obtained at 1246 hrs pm, and is compared to same day at 1101 hrs am, portable view. The heart and mediastinal silhouette are normal in appearance. Density over left lung base is probably due to epicardial fat pad. There is no true infiltrate. There is no pneumothorax or pleural fluid. IMPRESSION: No acute process in the chest. Dictated by: Dictated on workstation # [id number] Dict: 02/09/17 1234 Trans: 02/09/17 1338 Interpreted by: CHRIS GUAMAN MD Electronically signed by: CHRIS GUAMAN MD 02/09/17 1338 Departure Communication (Admissions) Time/Spoke to Admitting Phy: 14:[address] Thorne Time/Spoke to Consulting Phy: 14:10 Communication/Consulting Dr. Campbell Impression Impression: Primary Impression: Chest pain Disposition: ADMITTED INPATIENT Condition: Improved Admissions Decision to Admit Reason: Admit from ER (General) Decision to Admit/Date: Feb 09, 2017 Time/Decision to Admit Time: 14:10 Departure-Patient Inst. Referrals: CHERELLE CABRAL DO (PCP/Family) Primary Care Physician DUNG RIVERO MD Feb 09, 2017 12:25
--- NOTE | 2017-02-09 12:37 | Diagnostic Imaging Report ---
INDICATION: Left-sided chest pain PA and lateral chest obtained at 1246 hrs pm, and is compared to same day at 1101 hrs am, portable view. The heart and mediastinal silhouette are normal in appearance. Density over left lung base is probably due to epicardial fat pad. There is no true infiltrate. There is no pneumothorax or pleural fluid. IMPRESSION: No acute process in the chest. Dictated by: Dictated on workstation # [id number]
--- NOTE | 2017-02-09 14:57 | Consultation-Cardiology ---
HPI-Cardiology Cardiology Consultation: Date of Consultation 02/09/17 Date of Admission Attending Physician Maryellen Thorne DO Admitting Physician Clarence Castellon DO Consulting Physician Carmel CAMPBELL MD HPI: Time Seen by Provider: 14:52 Chief Complaint: Chest pain and shortness of breath This is a 56-year-old lady with history of hypertension and family history of premature CAD. She denies having hyperlipidemia and diabetes. She presents with recurrent episode of chest pain and shortness of breath. Her chest pain is substernal and in the left upper chest area radiates to the left arm. No significant exacerbating or relieving factors. Not associated with any significant concomitant cardiac symptoms. The pain is like pressure. Intensity is moderate. She also has shortness of breath with mild to moderate exertion. She denies any other cardiac symptoms including palpitation, near syncope, syncope, lower extremity swelling. Review of Systems-Cardiology Review of Systems Constitutional: No As described under HPI, No no symptoms reported, No chills, No fever, No lightheadedness, No malaise, No tiredness, No weight loss, No weight gain, No other Eyes: No As described under HPI, No no symptoms reported, No blindness, No blurred vision, No contact lenses, No drainage, No decreased acuity, No foreign body sensation, No glasses, No inflammation, No pain, No photophobia, No previous injury, No shadows, No tunnel vision, No other, No vision change Ears/Nose/Throat: No As described under HPI, No no symptoms reported, No chronic hearing loss, No epistaxis, No ear discharge, No ear pain, No loose teeth, No mouth pain, No mouth swelling, No nasal drainage, No nose pain, No recent hearing loss, No throat pain, No throat swelling, No ulcerations, No other Respiratory: shortness of breath Cardiovascular: chest pain Gastrointestinal: No no symptoms reported, No As described under HPI, No abdomen distended, No abdominal pain, No blood streaked bowels, No constipation , No diarrhea, No difficulty swallowing, No nausea, No poor appetite, No poor fluid intake, No rectal bleeding, No vomiting, No other, No nausea/vomiting/ diarrhea, No stool coloration changes Genitourinary: No no symptoms reported, No As described under HPI, No burning, No dysuria, No discharge, No frequency, No flank pain, No hematuria, No incontinence, No pain, No urgency, No other, No urine frequency changes, No urine coloration changes Musculoskeletal: No no symptoms reported, No As describe under HPI, No back pain, No gout, No joint pain, No joint swelling, No muscle pain, No muscle stiffness, No neck pain, No other Skin: No no symptoms reported, No As described under HPI, No change in color, No change in hair/nails, No dryness, No lesions, No lumps, No rash, No other, No skin related problems, No ulcerations, No rash on exposed areas, No ulcerations on exposed areas Psychiatric/Neurological: No no symptoms reported, No As described under HPI, No anxiety, No depression, No emotional problems, No headache, No numbness, No pre-existing deficit, No seizure, No tingling, No tremors, No weakness, No other , No focal weakness, No syncope Hematologic: No no symptoms reported, No As described under HPI, No anemia, No blood clots, No easy bleeding, No easy bruising, No swollen glands, No other, No bleeding abnormalities FHF-Gapuid-Kckupi Hx Patient Social History Alcohol Use: Denies Use Recreational Drug Use: No Smoking Status: Never a Smoker Recent Foreign Travel: No Recent Infectious Disease Expo: No Hospitalization with Isolation: Denies Past Medical History PMH As described under Assessment. Allergies and Home Medications Allergies Coded Allergies: No Known Drug Allergies (Verified , 08/30/16) Home Medications Lisinopril 20 Mg Tablet, 30 MG PO DAILY, (Reported) Omeprazole Magnesium 20 Mg Tablet.dr, 20 MG PO DAILY, (Reported) Physical Exam-Cardiology Physical Exam Vital Signs/I&O Vital Sign - Last 12Hours 02/09/17 10:16 Temp 97.9 Pulse 73 Resp 18 B/P (MAP) 159/79 Pulse Ox 95 O2 Delivery Room Air Capillary Refill : Less Than 3 Seconds Constitutional: No appears stated age, No AAO x 3, No apparent distress, No PERRL, No well-developed, No well-nourished, No other HEENT: No PERRL, No normal ENT inspection, No TMs normal, No pharynx normal, No scleral icterus (R), No scleral icterus (L), No pale conjunctivae (R), No pale conjunctivae (L), No photophobia, No TM abnormal (R), No TM abnormal (L), No pharyngeal erythema, No tonsillar exudate, No other, No discharge, No EOMI, No hearing is well preserved, No hard of hearing, No oral hygience is good, No ulceration, No xanthelasmas are seen Neck: No non-tender, No full range of motion, No supple, No normal inspection, No carotid bruit, No limited range of motion, No lymphadenopathy (R), No lymphadenopathy (L), No tender lateral, No tender midline, No thyromegaly, No other, No carotid pulses are 2 + bilaterally, No with good upstrokes Respiratory: No accessory muscle use, No respiratory distress, No chest tender , No chest expansion is symmetric, No chest is bilaterally symmetric, No lungs clear to percussion, No lungs clear to auscultation, No crackles, No rhonchi, No rales, No stridor, No wheezing, No pleural rub, No other Cardiovascular: No regular rate-rhythm, No irregularly irregular, No extra beats, No parasternal heave is noted, No JVD, No edema, No bradycardia, No tachycardia, No point of maximal impulse, No cardiac thrills are palpable, No S1 and S2, No gallop/S3, No gallop/S4, No diastolic murmur, No systolic murmur, No friction rub, No click, No other Gastrointestinal: No tender, No soft, No round, No distended, No pulsatile mass , No organomegaly, No guarding, No rebound, No tenderness, No hernia, No mass, No audible bowel sounds, No abnormal bowel sounds, No abdominal bruits, No spleenomegaly, No other Rectal: deferred Extremities: No normal range of motion, No non-tender, No normal inspection, No pedal edema, No calf tenderness, No normal capillary refill, No pelvis stable , No calf tenderness, No inflammation, No pedal edema, No slow capillary refill , No swelling, No other, No abrasion, No clubbing, No cyanosis, No ecchymosis, No laceration, No no lower extremity edema bilateral, No significant edema, No tenderness, No wound Neurologic/Psychiatric: No pharmacy informaticist II-XII nml as tested, No no motor/sensory deficits, No alert, No normal mood/affect, No oriented x 3, No abnormal cerebellar tests, No abnormal pharmacy informaticist II-XII, No abnormal gait, No aphasia, No EOM palsy, No facial droop, No motor weakness, No sensory deficit, No depressed affect, No disoriented x 3, No other, No grossly intact, No power is 5/5 both on sides Skin: No normal color, No warm/dry, No cyanosis, No cool, No diaphoresis, No damp, No ecchymosis, No jaundice, No mottled, No pallor, No rash, No tattoos/ piercings, No ulcerations, No rash on exposed areas, No ulcerations on exposed areas, No other Data Review Labs Laboratory Tests 02/09/17 10:30: White Blood Count 7.0, Red Blood Count 5.14, Hemoglobin 14.8, Hematocrit 43, Mean Corpuscular Volume 84, Mean Corpuscular Hemoglobin 29, Mean Corpuscular Hemoglobin Concent 34, Red Cell Distribution Width 14.5, Platelet Count 223, Mean Platelet Volume 9.8, Neutrophils (%) (Auto) 70, Lymphocytes (%) (Auto) 21, Monocytes (%) (Auto) 7, Eosinophils (%) (Auto) 1, Basophils (%) (Auto) 1, Neutrophils # (Auto) 4.9, Lymphocytes # (Auto) 1.5, Monocytes # (Auto) 0.5, Eosinophils # (Auto) 0.1, Basophils # (Auto) 0.0, Prothrombin Time 12.2, INR Comment 0.9, Activated Partial Thromboplast Time 31, Sodium Level 135, Potassium Level 3.8, Chloride Level 101, Carbon Dioxide Level 24, Anion Gap 10, Blood Urea Nitrogen 24H, Creatinine 0.73, Estimat Glomerular Filtration Rate > 60, BUN/Creatinine Ratio 33, Glucose Level 92, Calcium Level 9.5, Magnesium Level 1.9, Total Bilirubin 0.5, Aspartate Amino Transf (AST/SGOT) 22, Alanine Aminotransferase (ALT/SGPT) 26, Alkaline Phosphatase 72, Myoglobin 20.8, Troponin I < 0.30, C-Reactive Protein High Sensitivity 1.26H, Total Protein 7.4 , Albumin 4.1 A/P-Cardiology Assessment/Admission Diagnosis Chest pain, shortness of breath, hypertension. Plan Will rule out acute coronary syndrome with serial troponin. Pharmacological stress test tomorrow. Shortness of breath is unlikely cardiac. His no congestive heart failure on examination. An echocardiogram done earlier in the year was negative, however, she was not having shortness of breath at that point in time. Shortness of breath has started recently. Continue treatment for hypertension. Thank you for your consultation. Please call me if you have any questions. Frank Campbell MD, FACP, FACC, FSCAI, FHRS, CCDS Interventional Cardiology Cardiac Electrophysiology Vascular Medicine and Endovascular Interventions Clinical Quality Measures AMI/AHF: ASA po Prior to arrival: Carmel Don MD Feb 09, 2017 2:57 pm
[2017-02-09] MEDS ORDERED: morphine INJ 4 MG/ML 1 ML (VIAL/SYRINGE) IV PRN (15:30)
[2017-02-09] MEDS ORDERED: PROG100C6 PO (15:52)
[2017-02-09] MEDS ORDERED: ESTR-44 TD (15:52)
[2017-02-09 17:33] VITALS: BP 134/62
[2017-02-09 18:33] VITALS: BP 118/56
[2017-02-09 20:00] VITALS: BP 127/80
[2017-02-10] VITALS: BP 112/52
[2017-02-10 04:00] VITALS: BP 117/58
[2017-02-10 06:48] LABS: CHOLESTEROL 236 MG/DL (< 200); DIRECT LDL 153 MG/DL (1-129); TRIGLYCERIDES 129 MG/DL (<150); VLDL CHOLESTEROL 26 MG/DL (5-40)
[2017-02-10 08:00] VITALS: BP 112/59
[2017-02-10] MEDS ORDERED: ASPIRIN E.C. 325 MG (ECOTRIN) TABLET PO SCH (09:00)
[2017-02-10] MEDS ORDERED: ATORVASTATIN 40 MG (LIPITOR) TABLET PO SCH (09:45)
--- NOTE | 2017-02-10 10:39 | Cardiology Progress Note ---
Cardiology SOAP Progress Note Subjective: no further chest discomfort Objective: I&O/Vital Signs Vital Sign - Last 12Hours 02/10/17 02/10/17 02/10/17 02/10/17 00:00 01:00 04:00 08:00 Temp 98.4 97.6 97.5 Pulse 77 75 75 68 Resp 19 18 24 B/P (MAP) 112/52 117/58 112/59 Pulse Ox 97 93 95 O2 Delivery Room Air Room Air Room Air Weight (Pounds): 206 Weight (Ounces): 0.0 Weight (Calculated Kilograms): 93.232452 Constitutional: No appears stated age, No AAO x 3, No apparent distress, No PERRL, No well-developed, No well-nourished, No other Respiratory: No accessory muscle use, No respiratory distress, No chest tender , No chest expansion is symmetric, No chest is bilaterally symmetric, No lungs clear to percussion, No lungs clear to auscultation, No crackles, No rhonchi, No rales, No stridor, No wheezing, No pleural rub, No other Cardiovascular: No regular rate-rhythm, No irregularly irregular, No extra beats, No parasternal heave is noted, No JVD, No edema, No bradycardia, No tachycardia, No point of maximal impulse, No cardiac thrills are palpable, No S1 and S2, No gallop/S3, No gallop/S4, No diastolic murmur, No systolic murmur, No friction rub, No click, No other Gastrointestional: No tender, No soft, No round, No distended, No pulsatile mass, No organomegaly, No guarding, No rebound, No tenderness, No hernia, No mass, No audible bowel sounds, No abnormal bowel sounds, No abdominal bruits, No spleenomegaly, No other Extremities: No normal range of motion, No non-tender, No normal inspection, No pedal edema, No calf tenderness, No normal capillary refill, No pelvis stable , No calf tenderness, No inflammation, No pedal edema, No slow capillary refill , No swelling, No other, No abrasion, No clubbing, No cyanosis, No ecchymosis, No laceration, No no lower extremity edema bilateral, No significant edema, No tenderness, No wound Neurologic/Psychiatric: No machine paint mixer II-XII nml as tested, No no motor/sensory deficits, No alert, No normal mood/affect, No oriented x 3, No abnormal cerebellar tests, No abnormal machine paint mixer II-XII, No abnormal gait, No aphasia, No EOM palsy, No facial droop, No motor weakness, No sensory deficit, No depressed affect, No disoriented x 3, No other, No grossly intact, No power is 5/5 both on sides Skin: No normal color, No warm/dry, No cyanosis, No cool, No diaphoresis, No damp, No ecchymosis, No jaundice, No mottled, No pallor, No rash, No tattoos/ piercings, No ulcerations, No rash on exposed areas, No ulcerations on exposed areas, No other Results/Procedures: Labs Laboratory Tests 02/09/17 19:00: Troponin I < 0.30 02/10/17 06:05: Triglycerides Level 129, Cholesterol Level 236H, LDL Cholesterol Direct 153H, VLDL Cholesterol 26, HDL Cholesterol 69H A/P: Assessment/Dx: Chest pain, shortness of breath, hypertension, hyperlipidemia Plan: acute coronary syndrome ruled out with serial negative troponin. Unfortunately pharmacological stress test could not be performed today since both of our gamma camera was are out of order. We will schedule as an outpatient on Tuesday morning. Patient was instructed to come to the ER if there is any further chest pain episodes. Shortness of breath is unlikely cardiac. His no congestive heart failure on examination. echocardiogram showed normal LV size and function. Continue treatment for hypertension. significantly elevated lipid profile. Lipitor 40 mg started. Thank you for your consultation. Please call me if you have any questions. Frank Campbell MD, FACP, FACC, FSCAI, FHRS, CCDS Interventional Cardiology Cardiac Electrophysiology Vascular Medicine and Endovascular Interventions Clinical Quality Measures AMI/AHF: ASA po Prior to arrival: Carmel Don MD Feb 10, 2017 10:39 am
[2017-02-10] MEDS ORDERED: ASPI325T32 PO (10:49)
[2017-02-10] MEDS ORDERED: ATOR40TA PO (10:49)
--- NOTE | 2017-02-10 10:58 | Short Stay Summary-Hospitalist ---
HPI History of Present Illness: HPI/Chief Complaint CC: Chest pain HPI: This is a 56 [address] pt of [address] Castellon who presented to ER with chest pain. She was sent to ER from urgent care for chest pain starting one week ago. Apparently she had a father who had heart attack in his early 60s. She was found to need cardiac risk stratification, so stress test is being planned. Patient Interview: Pt denies having major chest pain since admission, but states she tends to consistently have a dull pain anyway. Pt confirms PCP as Dr. Castellon. Pt confirms having heart testing previously. Pt states she had a Ca++ score done, this was at zero. 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 Physical exam stable. Pt confirms seeing Dr. Campbell and having stress test scheduled Tuesday morning. He is okay with DC today. Pt asked about her cholesterol and she states that Dr. Campbell seemed worried about her cholesterol level Pt confirms having her meds reviewed Pt confirms L2C as pharmacy Scribed by Chula Bee under the direct supervision of Dr. Lamb. Source: patient Exam Limitations: no limitations Date Seen 02/10/17 Time Seen by Provider: 11:00 Attending Physician Maryellen Lamb DO PCP Clarence Castellon DO Referring Physician Date of Admission Feb 09, 2017 at 14:22 Home Medications & Allergies Home Medications Reviewed patient Home Medication Reconciliation Form Allergies Allergies Coded Allergies No Known Drug Allergies (Verified08/30/16) Past Gdiqavb-Mhdvso-Cratkw Hx Patient Social History Employed/Student: employed (Names and Numbers) Alcohol Use: Denies Use Recreational Drug Use: No Smoking Status: Never a Smoker Physical Abuse Screen: No Sexual Abuse: No Recent Foreign Travel: No Contact w/other who traveled: No Recent Hopitalizations: No Recent Infectious Disease Expo: No Immunizations Up To Date Date of Influenza Vaccine: Jan 04, 2017 Seasonal Allergies Seasonal Allergies: No Surgeries Yes (CS X2) Section, Hysterectomy Respiratory No Cardiovascular Yes High Cholesterol, Hypertension Neurological No Reproductive System : No Hx Reproductive Disorders: No Sexually Transmitted Disease: No 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 Review of Systems Constitutional: see HPI EENTM: no symptoms reported Respiratory: no symptoms reported Cardiovascular: chest pain Gastrointestinal: no symptoms reported Genitourinary: no symptoms reported Musculoskeletal: no symptoms reported Skin: no symptoms reported Psychiatric/Neurological: No Symptoms Reported All Other Systems Reviewed Negative Unless Noted: Yes Physical Exam Physical Exam Vital Signs Vital Sign - Last 12Hours 02/09/17 10:16 Temp 97.9 Pulse 73 Resp 18 B/P (MAP) 159/79 Pulse Ox 95 O2 Delivery Room Air Capillary Refill : Less Than 3 Seconds General Appearance: No Apparent Distress, WD/WN, Obese Eyes: Bilateral Eye Normal Inspection, Bilateral Eye PERRL HEENT: PERRL/EOMI, Normal ENT Inspection, Pharynx Normal Neck: Full Range of Motion, Normal Inspection, Non Tender, Supple, Carotid Bruit Respiratory: Chest Non Tender, Lungs Clear, Normal Breath Sounds, No Accessory Muscle Use, No Respiratory Distress Cardiovascular: Regular Rate, Rhythm, No Edema, No Gallop, No JVD, No Murmur, Normal Peripheral Pulses Gastrointestinal: Normal Bowel Sounds, No Organomegaly, No Pulsatile Mass, Non Tender, Soft Back: Normal Inspection, No CVA Tenderness, No Vertebral Tenderness Extremity: Normal Capillary Refill, Normal Inspection, Normal Range of Motion, Non Tender, No Calf Tenderness, No Pedal Edema Neurologic/Psychiatric: Alert, Oriented x3, No Motor/Sensory Deficits, Normal Mood/Affect Skin: Normal Color, Warm/Dry Lymphatic: No Adenopathy Results Results/Procedures Lab Laboratory Tests 02/09/17 10:30 Short Stay Diagnosis Discharge Diagnosis-Short Stay Admission Diagnosis Chest pain with previous cardiac testing negative for ischemia including calcium score but high risk for CAD due to early FH and HLP hx HTN GERD ERT Final Discharge Diagnosis Chest pain with previous cardiac testing negative for ischemia including calcium score but high risk for CAD due to early FH and HLP hx HTN GERD ERT Conclusion Plan Plan: Stress test 02/14/17 Cholesterol medication sent to pharmacy Restart all home meds Diagnosis/Problems Diagnosis/Problems (1) Chest pain Status: Acute Qualifiers: Qualified Codes: R07.9 - Chest pain, unspecified Clinical Quality Measures AMI/AHF: ASA po Prior to arrival: No DVT/VTE Risk/Contraindication: Risk Factor Score Per Nursin RFS Level Per Nursing on Admit: 3=High MARYELLEN LAMB DO Feb 10, 2017 10:58
[2017-02-10] MEDS ORDERED: PANTOPRAZOLE 20 MG TABLET (PROTONIX) PO PRN (11:00)
[2017-02-10] MEDS ORDERED: ESTRADIOL 0.1 MG PATCH (CLIMARA) TD SCH (11:00)
[2017-02-10 11:38] VITALS: BP 112/59
[2017-02-10] MEDS ORDERED: NON-FORMULARY MEDICATION 1 EA EA (Progesterone,Micronized (Progesterone) 100 MG) PO SCH ×2 (21:00)
[2017-02-11] MEDS ORDERED: lisINopril 20 MG (ZESTRIL) TAB PO SCH (09:00)
== END 2017-02-10 11:10 | disposition home or self-care (01) ==
LOC: EDUNIT# 10:16 → ER 10:18 → 4TH 14:22 → UNDOADMOB 14:22 → 4TH 15:30 → UNDODISOB 02-10 11:10
PROVIDERS: ADMIT Internal Medicine; ATTEND Internal Medicine
DX: R07.9 Chest pain, unspecified (principal); I10 Essential (primary) hypertension; K21.9 Gastro-esophageal reflux disease without esophagitis; E05.90 Thyrotoxicosis, unspecified without thyrotoxic crisis or storm; Z79.890 Hormone replacement therapy
CPT/HCPCS: 36415; 71010; 71020; 80053; 80061; 83735; 83874; 84484; 85025; 85610; 85730; 86141; 93005; 93041; 93306

== ENCOUNTER → 2017-02-14 | Outpatient (CLI) | payer OTHER ==
[~2017-02-14] VITALS: Ht 157.5 cm; Wt 94.3 kg
[~2017-02-14] MED LIST changes: +ASPI325T32 PO; +ATOR40TA PO; +ESTR-44 TD; +PROG100C6 PO; +REGADENOSON 0.4 MG/5 ML SYR (LEXISCAN) IV ONE
[2017-02-14] MEDS: CATHETER FLUSH 10 ML SYR IV PRN ×2 (08:05→09:34)
[2017-02-14 09:31] VITALS: BP 158/86
--- NOTE | 2017-02-14 21:20 | STRESS TEST ---
DATE OF SERVICE: 02/14/2017 PHARMACOLOGICAL NUCLEAR STRESS TEST REPORT PERFORMING PHYSICIAN: Dr. Frank Campbell. PRIMARY PHYSICIAN: Dr. Castellon. DIAGNOSIS: Chest pain. PROCEDURE DETAILS: This is a 56-year-old lady who complained of recurrent chest pain. She had a recent hospitalization for chest pain. Pharmacological nuclear stress test was recommended. She was brought to the stress lab after informed consent was taken. All the risks and complications were explained. Lexiscan was given IV 0.4 mg. Low grade exercise was performed. Baseline EKG shows sinus rhythm at 55 BPM. Blood pressure was 158/86 mmHg. Maximum heart rate was 110 BPM and blood pressure was 186/97 mmHg. The patient did not have any chest pain, ST changes, arrhythmias during the stress test. A 10.68 mCi of Myoview were given for rest imaging and 30.8 mCi of Myoview were given for stress imaging. TID was 0.97, ejection fraction 72%. Normal perfusion during stress and rest imaging. Normal wall motion. IMPRESSION/CONCLUSION: 1. Pharmacological nuclear stress test is negative for ischemia. 2. Normal perfusion during stress and rest imaging. 3. Normal LV function with normal wall motion. Job ID: [id number] DocumentID: [id number] Dictated Date: 02/14/2017 15:01:45 Call Center Agent Date: 02/14/2017 18:38:45 Dictated By: JOSEPHINE CAMPBELL MD
== END ==
LOC: CARD 07:45
PROVIDERS: ATTEND Internal Medicine Interventional Cardiology
DX: R07.9 Chest pain, unspecified (principal)
CPT/HCPCS: 78452; 93017

== ENCOUNTER → 2017-03-25 | Outpatient (CLI) | payer OTHER ==
[~2017-03-25] MED LIST changes: -REGADENOSON 0.4 MG/5 ML SYR (LEXISCAN) IV ONE
[2017-03-25] MEDS: IOHEXOL 350 MG/ML 100 ML (OMNIPAQUE 350) VIAL IV ONE (09:12)
[2017-03-25] MEDS: NS 100 ML (IVPB) BAG IV ONE (09:12)
[2017-03-25] MEDS: CATHETER FLUSH 10 ML SYR IV PRN (09:12)
--- NOTE | 2017-03-25 13:00 | Diagnostic Imaging Report ---
PROCEDURE: CT abdomen and pelvis with and without contrast. TECHNIQUE: Precontrast acquisitions were acquired through the abdomen and pelvis. Multiple contiguous axial images were obtained through the abdomen and pelvis after the administration of intravenous contrast. INDICATION: Followup liver lesion. COMPARISON: CT abdomen and pelvis of 12/23/2016. FINDINGS: Lower chest: The lung bases are clear. No pericardial or pleural effusion. Peritoneum: No free intraperitoneal air or fluid. Liver and biliary system: Liver is normal in size with multifocal large geographic areas of hypoattenuation, indicative of fatty infiltration. No hepatic cysts or solid enhancing lesion. The gallbladder is normal. No biliary duct dilation. Spleen and Pancreas: Spleen is normal. The pancreas enhances normally without mass lesion or peripancreatic inflammatory changes. Adrenals: Normal. tract: Pre contrast imaging demonstrates a stable 2 mm nonobstructing stone in the upper pole of the left kidney. Multiple benign simple renal cysts are present bilaterally and are unchanged. The largest is in the upper pole of the right kidney measuring 4.5 x 3.3 cm. No obstructive uropathy. Status post hysterectomy. No adnexal mass. GI tract: Stomach is decompressed. No bowel obstruction. No pericolonic inflammatory changes. Normal appendix. Vasculature and Lymph nodes: Normal caliber aorta. No abdominal or pelvic lymphadenopathy. Musculoskeletal: No concerning osseous lesion. IMPRESSION: 1. Multifocal large regions of hepatic steatosis. No solid or cystic hepatic masses. 2. Multiple benign bilateral renal cysts require no dedicated followup imaging. 3. Stable 2 mm nonobstructing stone in the upper pole of the left kidney. Dictated by: Dictated on workstation # [id number]
== END ==
LOC: RAD 08:44
PROVIDERS: ATTEND Nurse Practitioner Family
DX: K76.0 Fatty (change of) liver, not elsewhere classified (principal); N28.1 Cyst of kidney, acquired; N20.0 Calculus of kidney
CPT/HCPCS: 74178

== ENCOUNTER → 2017-06-06 | Outpatient (CLI) | payer BC, OTHER ==
--- NOTE | 2017-06-06 10:20 | Diagnostic Imaging Report ---
Clinical indication: Patient with mass in the left parietal lobe area x2 years. This area is sometimes painful. Exam: Limited focused ultrasound in the left side of the head area of concern. Comparison: Head CT without IV contrast dated 12/02/2008. 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 This lesion is wider than it is tall and there is no significant central Doppler flow. Considerations may include a sebaceous cyst or calcified granuloma. If there is concern for melanoma, then tissue biopsy would better evaluate. This area does not extend below the area of the calvarium and appears benign. This is not seen on the comparison head CT. Dictated by: Dictated on workstation # [id number]
== END ==
LOC: RAD 08:44
PROVIDERS: ATTEND Nurse Practitioner Family
DX: R22.0 Localized swelling, mass and lump, head (principal)
CPT/HCPCS: 76536

== ENCOUNTER → 2017-07-05 | Outpatient (CLI) | payer BC ==
[~2017-07-05] MED LIST changes: +GADOBUTROL 10 MMOL/10 ML (GADAVIST) VIAL IV ONE
[2017-07-05 12:58] LABS: BUN/CREATININE RATIO 26; GFR ESTIMATED > 60
--- NOTE | 2017-07-05 16:18 | Diagnostic Imaging Report ---
INDICATION: Routine screening. COMPARISON: 07/27/2016 and 04/15/2015. TECHNIQUE: Screening digital mammography was performed bilaterally with a Computer Aided Detection (CAD) system. FINDINGS: Scattered fibroglandular densities are identified bilaterally. A benign-appearing intraparenchymal lymph node in the upper outer right breast is again noted. No spiculated mass or malignant appearing microcalcifications are seen. The axillae are unremarkable. IMPRESSION: No mammographic features suspicious for malignancy are identified. ACR BI-RADS Category 2: Benign findings. Result letter will be mailed to the patient. Note: At least 10% of breast cancer is not imaged by mammography. Dictated by: Dictated on workstation # [id number]
--- NOTE | 2017-07-05 16:33 | Diagnostic Imaging Report ---
PROCEDURE: MR imaging of the brain with and without contrast. TECHNIQUE: Multiplanar/multisequence MR imaging of the brain was performed with and without contrast. INDICATION: Headaches and dizziness as well as blurred vision. FINDINGS: The ventricles and sulci are within normal limits. There is a tiny focus in the right periventricular white matter on the FLAIR sequences, nonspecific but perhaps owing to chronic microvascular ischemia. No diffusion restriction is seen. No acute intra-axial or extra-axial hemorrhage is seen. The normal expected flow-voids within the carotid siphons are seen. There is no abnormal enhancement following contrast administration. The corpus callosum is unremarkable. The sella and parasellar structures are unremarkable. IMPRESSION: Essentially unremarkable MRI of the brain with and without contrast. Dictated by: Dictated on workstation # [id number]
== END ==
LOC: RAD 12:15
PROVIDERS: ATTEND Internal Medicine
DX: Z12.31 Encounter for screening mammogram for malignant neoplasm of breast (principal); R51 Headache; R42 Dizziness and giddiness; H53.8 Other visual disturbances; R41.3 Other amnesia
CPT/HCPCS: 36415; 70553; 77067; 82565; 84520

== ENCOUNTER → 2018-07-19 | Outpatient (CLI) | payer BC, OTHER ==
[~2018-07-19] MED LIST changes: -GADOBUTROL 10 MMOL/10 ML (GADAVIST) VIAL IV ONE
--- NOTE | 2018-07-19 11:17 | Diagnostic Imaging Report ---
PROCEDURE: US Gallbladder. TECHNIQUE: Multiple Real-time grayscale images were obtained over the right upper quadrant in various projections. INDICATION: Right upper quadrant pain. FINDINGS: There is fatty infiltration of the liver. There is no intrahepatic biliary ductal dilatation. The common bile duct measures 6.8 mm. There is no cholelithiasis, gallbladder wall thickening, or pericholecystic fluid. The pancreas is largely obscured by bowel gas. There is a 4.5 cm cyst in the superior aspect of the right kidney. The kidneys are otherwise unremarkable. There is no ascites. IMPRESSION: Fatty infiltration of the liver. 4.5 cm right renal cyst. Otherwise, unremarkable right upper quadrant ultrasound. Dictated by: Dictated on workstation # [id number]
--- NOTE | 2018-07-19 21:33 | Diagnostic Imaging Report ---
INDICATION: Routine screening. COMPARISON: Prior mammograms from 07/05/2017 and 07/27/2016. EXAMINATION: 2D and 3D bilateral screening mammography was performed with CAD. The current study was also evaluated with a Computer Aided Detection (CAD) system. FINDINGS: Scattered fibroglandular densities are identified, bilaterally. No mass or malignant appearing microcalcifications are seen. There are benign calcifications present. The axillae are unremarkable. IMPRESSION: No mammographic features suspicious for malignancy are identified. ACR BI-RADS Category 2: Benign findings. Result letter will be mailed to the patient. Note: At least 10% of breast cancer is not imaged by mammography. Dictated by: Dictated on workstation # [id number]
== END ==
LOC: RAD 09:26
PROVIDERS: ATTEND Nurse Practitioner Family
DX: Z12.31 Encounter for screening mammogram for malignant neoplasm of breast (principal); K76.0 Fatty (change of) liver, not elsewhere classified; N28.1 Cyst of kidney, acquired
CPT/HCPCS: 76705; 77067

== ENCOUNTER → 2018-08-31 | Outpatient (CLI) | payer BC ==
[~2018-08-31] MED LIST changes: +CATHETER FLUSH 10 ML SYR IV PRN
--- NOTE | 2018-08-31 20:05 | Diagnostic Imaging Report ---
INDICATION: Abdominal pain. DETAILS OF PROCEDURE: Patient was administered 5.2 mCi of technetium-99m Choletec intravenously and imaging of the abdomen was performed. At one hour, patient ingested 8 ounces of Ensure and a gallbladder ejection fraction was calculated. There is homogeneous uptake of activity by the liver with prompt excretion of activity into the common duct and gallbladder. There is normal passage of activity into the small bowel. Gallbladder ejection fraction is abnormally low at 7%. Normal values are 33% or greater. IMPRESSION: 1. Patent cystic duct and common bile duct. 2. Abnormally low gallbladder ejection fraction of 7%. Dictated by: Dictated on workstation # [id number]
== END ==
LOC: CARD 12:23
PROVIDERS: ATTEND Nurse Practitioner Family
DX: R10.816 Epigastric abdominal tenderness (principal)
CPT/HCPCS: 78227

== ENCOUNTER 2018-09-14 14:20 | Outpatient (CLI) | payer BC ==
[~2018-09-14] VITALS: Ht 157.5 cm; Wt 97.5 kg
[~2018-09-14 14:20] MED LIST changes: -CATHETER FLUSH 10 ML SYR IV PRN
[2018-09-14] MEDS ORDERED: ESTR-85 PO (14:47)
[2018-09-15] MEDS ORDERED: ACHD5005 PO (10:58)
[2018-09-15] MEDS ORDERED: DOCU-143 PO (10:58)
== END 2018-09-14 14:57 | disposition home or self-care (01) ==
LOC: PREOP 14:20
PROVIDERS: ATTEND Surgery
DX: Z01.818 Encounter for other preprocedural examination (principal)

== ENCOUNTER 2018-09-15 08:22 | Day surgery (SDC) | payer BC ==
[~2018-09-15] VITALS: Ht 157.5 cm; Wt 97.5 kg
[2018-09-15] VITALS (10 sets, daily range): BP systolic 131–162; BP diastolic 71–89
[~2018-09-15 08:22] MED LIST changes: +ESTR-85 PO
[2018-09-15] MEDS ORDERED: ceFAZolin 2 GM/50 ML NS 50 ML IV ONE (08:45)
--- NOTE | 2018-09-15 09:14 | Progress Note-Pre Operative ---
Pre-Operative Progress Note H&P Reviewed The H&P was reviewed, patient examined and no changes noted. Date Seen by Provider: Sep 15, 2018 Time Seen by Provider: 09:13 Date H&P Reviewed: Sep 15, 2018 Time H&P Reviewed: 09:13 Pre-Operative Diagnosis: RUQ ABD PAIN, BILIARY DYSKINESIA ONUR SLAUGHTER DO Sep 15, 2018 09:14
[2018-09-15] MEDS ORDERED: DEXAMETHASONE 10 MG/ML (DECADRON) 1 ML VIAL ONE (09:19)
[2018-09-15] MEDS ORDERED: proPOfol 200 MG/20 ML (DIPRIVAN) VIAL IV ONE (09:19)
[2018-09-15] MEDS ORDERED: ROCURONIUM 10 MG/ML 5 ML SYRINGE IV ONE (09:19)
[2018-09-15] MEDS ORDERED: ONDANSETRON 4 MG/2 ML (SDV) Z0FRAN ONE ×3 (09:19→11:47)
[2018-09-15] MEDS ORDERED: SEVOFLURANE (ULTANE) 15 ML INHAL SOLN ONE ×2 (09:19→10:46)
[2018-09-15] MEDS ORDERED: LIDOCAINE PF 2% 5 ML (XYLOCAINE) VIAL ONE (09:19)
[2018-09-15] MEDS ORDERED: BUP/EPI 0.5% 1:200,000 (SENSORCAINE) 30 ML VIAL ONE (09:20)
[2018-09-15] MEDS ORDERED: LIDOCAINE 1% INJ 20 ML 20 ML VIAL ONE (09:20)
[2018-09-15] MEDS ORDERED: MIDAZOLAM 2 MG/2 ML (VERSED) VIAL ONE (09:20)
[2018-09-15] MEDS ORDERED: fentaNYL INJECTION 100 MCG/2 ML AMP ONE ×2 (09:20→10:17)
[2018-09-15] MEDS ORDERED: NEOSTIGMINE 1 MG/ML 5 ML SYRINGE ONE (09:26)
[2018-09-15] MEDS ORDERED: GLYCOPYRROLATE 0.2 MG/ML (ROBINUL) 2 ML VIAL ONE (09:26)
[2018-09-15] MEDS: LACTATED RINGERS 1,000 ML IV PRN ×2 (09:30→10:35)
--- NOTE | 2018-09-15 10:56 | Progress Note-Post Operative ---
Post-Operative Progess Note Surgeon (s)/Revenue Field Auditor (s) Surgeon ONUR SLAUGHTER DO Revenue Field Auditor: Dr. Cordoba Pre-Operative Diagnosis RUQ ABD PAIN, BILIARY DYSKINESIA Post-Operative Diagnosis same Procedure & Operative Findings Date of Procedure 09/15/18 Procedure Performed/Findings lap vianey c ioc Anesthesia Type gen Estimated Blood Loss Estimated blood loss (mL): min Specimens/Packing Specimens Removed gallbladder ONUR SLAUGHTER DO Sep 15, 2018 10:56
[2018-09-15] MEDS ORDERED: DOCU-143 PO (10:58)
[2018-09-15] MEDS ORDERED: ACHD5005 PO (10:58)
--- NOTE | 2018-09-15 11:01 | Discharge Inst-Simple/Standard ---
Discharge Inst-Standard Discharge Medications New, Converted or Re-Newed RX: RX on Chart Patient Instructions/Follow Up Plan of Care/Instructions/FU: 2 weeks catherine Activity as Tolerated: No Discharge Diet: Regular Diet Other Inst to Patient Follow up Appt: Make appointment for 2 weeks. Instructions: No lifting greater than 10 pounds. No strenuous activity. May shower in 24 hours, no tub bath or soaking. Use incentive spirometer at home as directed. No Smoking Skin/Wound Care: You have special glue over incisions it will fall off on its own. Symptoms to Report: Appetite Changes, Extremity Discoloration, Numbness/Tingling, Swelling Increased, Bleeding Excessive, Eyesight Changes, Pain Increased, Urine Color Change, Constipation(Persistent), Fever over 101 degree F, Pain/Pressure in ches t, Urinating Difficulty, Cough Up/Vomit Blood, Heart Beat Irreg/Pounding, Pain/Pressure in jaw, Vaginal Bleeding Increase, Cramps in feet or legs, Lightheadedness, Pain/Pressure in shoulder, Diarrhea(Persistent), Memory Changes Suddenly, Questions/Concerns, Weight gain consecutive days, Dizziness/Fainting, Nausea/Vomiting, Shortness of Breath, Weight gain over 2 pounds. If eyes or skin turn yellow notify physician. If questions or concerns contact your physician Or seek help at emergency department. ONUR SLAUGHTER DO Sep 15, 2018 11:01
[2018-09-15] MEDS: ONDANSETRON 4 MG/2 ML (SDV) Z0FRAN IVP PRN ×2 (11:38→11:54)
[2018-09-15] MEDS ORDERED: morphine INJ 10 MG/ML 1ML (SYR OR VIAL) ONE (11:40)
[2018-09-15] MEDS ORDERED: HYDROmorphone 2 MG/ML VIAL (DILAUDID) IV ONE (11:45)
[2018-09-15] MEDS ORDERED: morphine INJ 10 MG/ML 1ML (SYR OR VIAL) IVP ONE (11:45)
[2018-09-15] MEDS ORDERED: PROMETHAZINE INJ 25 MG/ML (PHENERGAN) AMP ONE (12:12)
[2018-09-15] MEDS ORDERED: PROMETHAZINE INJ 25 MG/ML (PHENERGAN) AMP IVP ONE (12:20)
[2018-09-15] MEDS ORDERED: HYDROcodone/APAP 5 MG/325 MG (LORTAB) TAB ONE (12:20)
[2018-09-15] MEDS ORDERED: HYDROcodone/APAP 5 MG/325 MG (LORTAB) TAB PO ONE (12:25)
--- NOTE | 2018-09-15 13:45 | Anesthesia-General Post-Op ---
General Patient Condition Mental Status/LOC: Same as Preop Cardiovascular: Satisfactory Nausea/Vomiting: Absent Respiratory: Satisfactory Pain: Controlled Complications: Absent Post Op Complications Complications None Follow Up Care/Instructions Patient Instructions None needed. Anesthesia/Patient Condition Patient Condition Patient is doing well, no complaints, stable vital signs, no apparent adverse anesthesia problems. No complications reported per nursing. [place] [facility] [place] RACHEL MACE CRNA Sep 15, 2018 13:45
--- NOTE | 2018-09-15 17:03 | OPERATIVE REPORT ---
DATE OF SERVICE: 09/15/2018 PREOPERATIVE DIAGNOSES: Right upper quadrant abdominal pain, biliary dyskinesia. POSTOPERATIVE DIAGNOSES: Right upper quadrant abdominal pain, biliary dyskinesia. PROCEDURE PERFORMED: Laparoscopic cholecystectomy with intraoperative cholangiogram. SURGEON: Onur Fortune DO. DOORMAKER: Sourav Cordoba DO, assisted in retraction, dissection and closure. ANESTHESIA: General. ESTIMATED BLOOD LOSS: Minimal. COMPLICATIONS: None. INDICATIONS: The patient is a 57-year-old female with workup consistent with biliary dyskinesia and symptoms consistent with that as well. She understands risks and benefits of procedure and wished to proceed with procedure. DESCRIPTION OF PROCEDURE: Consent was signed in the chart. The patient was taken to the operating suite, prepped and draped in sterile fashion. Timeout was performed. A midline incision 12 mm just above the umbilicus was made, cautery dissection down to the fascia, which was then scored, grasped and elevated. The abdomen was then entered. A #0 Vicryl was placed in a [id number] fashion for closure at the end of the case. Balloon trocar was inserted and pneumoperitoneum was achieved. Under direct visualization of the laparoscope, a 5 mm trocar was placed in the subxiphoid region and two 5 mm trocars were placed in the right upper quadrant. Gallbladder was grasped, elevated. There were some adhesions that were taken down. The cystic duct and cystic artery were then dissected out. Clips were placed on the proximal and distal portion of the cystic artery. Clips were placed on the distal portion of the cystic duct. The duct was then partially transected. Arrow catheter inserted. A clip was used to hold the catheter up in place. Cholangiogram was performed. There were no filling defects. Contrast made its way into the duodenum without difficulty. Clip was removed. Clips were placed on the proximal portion of the cystic duct and the duct and artery completely transected. Hook cautery used to dissect the gallbladder from the gallbladder fossa achieving hemostasis. Once removed, it was placed in an Endobag and removed through the 12 mm trocar site. Abdomen was irrigated and suctioned. Hemostasis was achieved. The abdomen was desufflated, the trocars were removed. A #0 Vicryl that was previously placed was then tied closing the fascial defect. The skin was then closed using 4-0 Monocryl in a subcuticular fashion. The abdomen was then washed and dried and Skin Affix was placed over the incisions. The patient tolerated procedure well without any complications. She was taken to recovery room in stable condition. Job ID: [id number] DocumentID: [id number] Dictated Date: 09/15/2018 11:08:27 Can Washer Date: 09/15/2018 17:03:33 Dictated By: ONUR FORTUNE DO
--- NOTE | 2018-09-15 18:59 | Diagnostic Imaging Report ---
INDICATION: Fluoroscopy during intraoperative cholangiogram. FINDINGS: Fluoroscopy was provided in the OR during intraoperative cholangiogram. 11 seconds of fluoroscopy was utilized. Images demonstrate contrast being injected via the cystic duct remnant. Intrahepatic and extrahepatic bile ducts are opacified. Extrahepatic duct is somewhat dilated but no filling defects are seen. IMPRESSION: Fluoroscopy during intraoperative cholangiogram. Dictated by: Dictated on workstation # [id number]
== END 2018-09-15 15:10 | disposition home or self-care (01) ==
LOC: SDC 08:22
PROVIDERS: ATTEND Surgery
DX: K81.1 Chronic cholecystitis (principal); I10 Essential (primary) hypertension; K21.9 Gastro-esophageal reflux disease without esophagitis; E66.9 Obesity, unspecified; Z68.39 Body mass index [BMI] 39.0-39.9, adult; Z79.899 Other long term (current) drug therapy
CPT/HCPCS: 87081

== ENCOUNTER → 2019-09-21 | Outpatient (CLI) | payer BC ==
[~2019-09-21] MED LIST changes: +ACHD5005 PO; +DOCU-143 PO; -ESTR-85 PO; +PROG100C11 PO; -PROG100C6 PO; +SYNTEST.HS PO
--- NOTE | 2019-09-21 11:43 | Diagnostic Imaging Report ---
EXAM: Digital mammogram bilateral screening. The current study was also evaluated with a Computer Aided Detection (CAD) system. COMPARISON: This study was compared to the prior exams of 07/19/2018, 07/05/2017 and 07/27/2016. There are no current complaints. FINDINGS: There are scattered fibroglandular densities in both breasts which could obscure a lesion. Overall, there does not appear to have been any significant change when compared to the prior exam. No primary or secondary sign of malignancy is noted. IMPRESSION: There is no radiographic evidence for malignancy. ACR category 1. ACR BI-RADS Category 1: Negative. Result letter will be mailed to the patient. Note: At least 10% of breast cancer is not imaged by mammography. Dictated by: Dictated on workstation # [id number]
== END ==
LOC: RAD 08:11
PROVIDERS: ATTEND Nurse Practitioner Family
DX: Z12.31 Encounter for screening mammogram for malignant neoplasm of breast (principal)
CPT/HCPCS: 77063; 77067

== ENCOUNTER → 2020-09-22 | Outpatient (CLI) | payer BC ==
--- NOTE | 2020-09-22 13:12 | Diagnostic Imaging Report ---
INDICATION: Routine screening. COMPARISON: 09/21/2019 and 07/19/2018. TECHNIQUE: 2D and 3D bilateral screening mammography was performed with CAD. FINDINGS: Both breasts are heterogeneously dense, limiting the sensitivity of mammography. The parenchymal pattern is stable. No mass or malignant appearing microcalcifications are seen. There are benign calcifications on the left. The axillae are unremarkable. IMPRESSION: No mammographic features suspicious for malignancy are identified. ACR BI-RADS Category 2: Benign findings. Result letter will be mailed to the patient. Note: At least 10% of breast cancer is not imaged by mammography. Dictated by: Dictated on workstation # [id number]
== END ==
LOC: RAD 10:15
PROVIDERS: ATTEND Nurse Practitioner Family
DX: Z12.31 Encounter for screening mammogram for malignant neoplasm of breast (principal)
CPT/HCPCS: 77063; 77067

== ENCOUNTER → 2021-07-17 | Outpatient (CLI) | payer BC, OTHER ==
[~2021-07-17] VITALS: Ht 154 cm; Wt 96.0 kg
[~2021-07-17] MED LIST changes: +CATHETER FLUSH 10 ML SYR IVP PRN
[2021-07-17 08:10] VITALS: BP 142/70
--- NOTE | 2021-07-17 16:08 | STRESS TEST ---
DATE OF SERVICE: 07/17/2021 RESTING AND POST EXERCISE TECHNETIUM-99M TETROFOSMIN SPECT CT IMAGING ORDERING PHYSICIAN: Dr. Castellon. PRIMARY PHYSICIAN: Dr. Castellon. CLINICAL DIAGNOSIS: Chest pain. Baseline images were carried out after injection of 10.36 mCi of technetium-99m Tetrofosmin. This was followed by exercise on a treadmill that was carried out under Dr. Castellon's supervision and the details of the stress test are reported separately by him. After the patient had attained more than 85% of maximum predicted heart rate, 31.9 mCi of technetium-99m Tetrofosmin were injected for stress imaging. Review of images at rest and following exercise does not indicate significant perfusion defects consistent with myocardial ischemia or infarction. Gated images show normal global left ventricular systolic function with normal regional wall motion. Left ventricular ejection fraction is calculated to be 80%. CONCLUSIONS: 1. No evidence of any significant myocardial ischemia or infarction on myocardial perfusion imaging. 2. Normal regional wall motion. 3. Normal global left ventricular systolic function with a calculated ejection fraction 80%. Job ID: [id number] DocumentID: [id number] Dictated Date: 07/17/2021 14:15:58 Offset Second Press Operator Date: 07/17/2021 16:07:19 Dictated By: BONNY THOMAS MD, MA, FACP, FACC,
== END ==
LOC: CARD 06:46
PROVIDERS: ATTEND Internal Medicine
DX: R07.89 Other chest pain (principal); R03.0 Elevated blood-pressure reading, without diagnosis of hypertension
CPT/HCPCS: 78452; 93017; A9502

== ENCOUNTER → 2021-09-01 | Outpatient (CLI) | payer OTHER ==
[~2021-09-01] MED LIST changes: -CATHETER FLUSH 10 ML SYR IVP PRN
--- NOTE | 2021-09-01 13:19 | Diagnostic Imaging Report ---
Indication: Routine screening. Comparison is made with prior mammogram from 09/22/2020 and 09/21/2019. 2-D and 3-D bilateral screening mammography was performed with CAD. CAD is utilized. The current study was also evaluated with a Computer Aided Detection (CAD) system. Both breasts are heterogeneously dense, limiting the sensitivity of mammography. Parenchymal pattern is stable. No mass or malignant-appearing microcalcifications are seen. There are benign calcifications present. Axillae are unremarkable. IMPRESSION: BI-RADS Category 2 No mammographic features suspicious for malignancy are identified. ACR BI-RADS Category 2: Benign findings. Result letter will be mailed to the patient. Note: At least 10% of breast cancer is not imaged by mammography. Dictated by: Dictated on workstation # [id number]
== END ==
LOC: RAD 07:30
PROVIDERS: ATTEND Nurse Practitioner Family
DX: Z12.31 Encounter for screening mammogram for malignant neoplasm of breast (principal)
CPT/HCPCS: 77063; 77067

== ENCOUNTER 2022-11-03 17:17 | Emergency (ER) | payer OTHER ==
[2022-11-03 18:04] LABS: BASOPHILS % (AUTO) 0 % (0-10); EOSINOPHILS # (AUTO) 0.1 10^3/uL (0.0-0.3); EOSINOPHILS % (AUTO) 1 % (0-10); HEMATOCRIT 43 % (35-52); HEMOGLOBIN 14.1 g/dL (11.5-16.0); LYMPHOCYTES # (AUTO) 2.3 10^3/uL (1.0-4.0); LYMPHOCYTES % (AUTO) 25 % (12-44); MEAN CORPUSCULAR HEMOGLOBIN 29 pg (25-34); MEAN CORPUSCULAR HGB CONC 33 g/dL (32-36); MEAN CORPUSCULAR VOLUME 88 fL (80-99); MEAN PLATELET VOLUME 9.5 fL (9.0-12.2); MONOCYTES # (AUTO) 0.7 10^3/uL (0.0-1.0); MONOCYTES % (AUTO) 7 % (0-12); NEUTROPHILS # (AUTO) 6.3 10^3/uL (1.8-7.8); NEUTROPHILS % (AUTO) 66 % (42-75); PLATELET COUNT 221 10^3/uL (130-400); WHITE BLOOD COUNT 9.5 10^3/uL (4.3-11.0)
[2022-11-03 18:07] LABS: POTASSIUM 4.3 MMOL/L (3.6-5.0)
[2022-11-03 18:08] LABS: CALCIUM 10.6 MG/DL (8.5-10.1)
[2022-11-03 18:10] LABS: TOTAL PROTEIN 7.2 GM/DL (6.4-8.2)
[2022-11-03 18:12] LABS: BILIRUBIN,TOTAL 0.2 MG/DL (0.1-1.0)
[2022-11-03 18:13] LABS: CREATININE SERUM 0.93 MG/DL (0.60-1.30)
--- NOTE | 2022-11-03 18:21 | ED Headache ---
General Chief Complaint: Head/Cervical Problems Stated Complaint: HEADACHE Source: patient Exam Limitations: no limitations History of Present Illness Date Seen by Provider: Nov 03, 2022 Time Seen by Provider: 17:49 Initial Comments 62-year-old female presents to the ER with complaint of intermittent shooting pain on the right side of her head, states pain fluctuates in location, but always stays on the right side. She states the pain only last for couple seco nds, and can go anywhere between 1 minute to 10 minutes in between pains. She reports the pain started on Tuesday night, states that she usually has this pain when she has a sinus infection, but states that it usually only lasts about a day. She started on Levaquin on Tuesday, but has still been having headache. She states that prior to starting the antibiotic she was having some nasal congestion, reports that has dissipated. She reports she has been taking 800 mg of ibuprofen every 3-4 hours, patient educated on the dangers of taking too much ibuprofen. She denies fevers, cough, dizziness, chest pain, shortness of air, nausea, vomiting, vision changes, photophobia, phonophobia. Past medical history includes hypertension, she takes lisinopril for this. Blood pressure found to be elevated on arrival at greater than 200 systolic. Allergies and Home Medications Allergies Coded Allergies: No Known Drug Allergies (Verified , 09/14/18) Patient Home Medication List Home Medication List Reviewed: Yes Docusate Sodium (Colace) 100 Mg Capsule, 100 MG PO BID Prescribed by: ONUR SLAUGHTER on 09/15/18 1058 Estrogen,Lolis/Me-Testosterone (Estrogen-Methyltestos H.s. Tab) 1 Each Tablet, 1 TAB PO DAILY, (Reported) Entered as Reported by: MEMO HIGGINS on 09/14/18 1447 Hydrocodone Bit/Acetaminophen (Lortab 5 Mg Tablet) 1 Tab Tab, 1-2 TAB PO Q6H P RN for PAIN-MODERATE Prescribed by: ONUR SLAUGHTER on 09/15/18 1058 Lisinopril (Prinivil) 20 Mg Tablet, 20 MG PO DAILY, (Reported) Entered as Reported by: HEIDI FERRARO on 03/01/13 0834 Review of Systems Review of Systems Constitutional: see HPI Past Vjnnwvz-Ayuizk-Vzvbte Hx Seasonal Allergies Seasonal Allergies: No Past Medical History Surgeries: Yes (CS X2) Section, Hysterectomy Respiratory: No Cardiac: Yes Hypertension Neurological: No Reproductive Disorders: No 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 Heart Disease Physical Exam Vital Signs Vital Signs - First Documented 11/03/22 17:30 Temp 36.6 Pulse 76 Resp 18 B/P (MAP) 200/104 (136) Pulse Ox 98 O2 Delivery Room Air Capillary Refill : Height, Weight, BMI Height: 5'2.00" Weight: 215lbs. 0.0oz. 97.104391xa; 40.47 BMI Method:Stated General Appearance: WD/WN, no apparent distress HEENT: PERRL/EOMI, other (Bilateral TMs dull, mild redness to left TM, no pain with palpation to temporal) Neck: supple, normal inspection Cardiovascular: regular rate, rhythm Respiratory: lungs clear, normal breath sounds, no respiratory distress, no accessory muscle use Extremities: normal range of motion, normal inspection Psychiatric: alert [place] Nerves: normal hearing, normal speech, PERRL Motor/Sensory: no motor deficit, no sensory deficit Skin: normal color, warm/dry Progress/Results/Core Measures Results/Orders Lab Results Laboratory Tests Test 11/03/22 17:40 Range/Units White Blood Count 9.5 4.3-11.0 10^3/uL Red Blood Count 4.85 3.80-5.11 10^6/uL Hemoglobin 14.1 11.5-16.0 g/dL Hematocrit 43 35-52 % Mean Corpuscular Volume 88 80-99 fL Mean Corpuscular Hemoglobin 29 25-34 pg Mean Corpuscular Hemoglobin Concent 33 32-36 g/dL Red Cell Distribution Width 13.9 10.0-14.5 % Platelet Count 221 130-400 10^3/uL Mean Platelet Volume 9.5 9.0-12.2 fL Immature Granulocyte % (Auto) 0 % Neutrophils (%) (Auto) 66 42-75 % Lymphocytes (%) (Auto) 25 12-44 % Monocytes (%) (Auto) 7 0-12 % Eosinophils (%) (Auto) 1 0-10 % Basophils (%) (Auto) 0 0-10 % Neutrophils # (Auto) 6.3 1.8-7.8 10^3/uL Lymphocytes # (Auto) 2.3 1.0-4.0 10^3/uL Monocytes # (Auto) 0.7 0.0-1.0 10^3/uL Eosinophils # (Auto) 0.1 0.0-0.3 10^3/uL Basophils # (Auto) 0.0 0.0-0.1 10^3/uL Immature Granulocyte # (Auto) 0.0 0.0-0.1 10^3/uL Erythrocyte Sedimentation Rate 11 0-30 MM/HR Sodium Level 140 135-145 MMOL/L Potassium Level 4.3 3.6-5.0 MMOL/L Chloride Level 105 98-107 MMOL/L Carbon Dioxide Level 26 21-32 MMOL/L Anion Gap 9 5-14 MMOL/L Blood Urea Nitrogen 16 7-18 MG/DL Creatinine 0.93 0.60-1.30 MG/DL Estimat Glomerular Filtration Rate 69 BUN/Creatinine Ratio 17 Glucose Level 90 70-105 MG/DL Calcium Level 10.6 H 8.5-10.1 MG/DL Corrected Calcium 10.6 H 8.5-10.1 MG/DL Magnesium Level 2.0 1.6-2.4 MG/DL Total Bilirubin 0.2 0.1-1.0 MG/DL Aspartate Amino Transf (AST/SGOT) 17 5-34 U/L Alanine Aminotransferase (ALT/SGPT) 23 0-55 U/L Alkaline Phosphatase 68 40-136 U/L C-Reactive Protein High Sensitivity 1.06 H 0.00-0.50 MG/DL Total Protein 7.2 6.4-8.2 GM/DL Albumin 4.0 3.2-4.5 GM/DL My Orders Orders - KASH BLANTON APRN Ekg Tracing (11/03/22 17:50) Cbc With Automated Diff (11/03/22 17:56) Magnesium (11/03/22 17:56) Comprehensive Metabolic Panel (11/03/22 17:56) Monitor-Rhythm Ecg Trace Only (11/03/22 17:56) Ed Iv/Invasive Line Start (11/03/22 17:56) Erythrocyte Sedimentation Rate (11/03/22 18:00) Hs C Reactive Protein (11/03/22 18:00) Ketorolac Injection (Ketorolac Injection (11/03/22 18:45) Labetalol Injection (Sdv) (Labetalol Inj (11/03/22 19:00) Dexamethasone Injection (Dexamethasone (11/03/22 19:45) Diphenhydramine Injection (Diphenhydram (11/03/22 20:30) Prochlorperazine Injection (Compazine In (11/03/22 20:30) Ct Head Wo (11/03/22 20:17) Medications Given in ED Current Medications Medications Dose Ordered Sig/David Route Start Time Stop Time Status Last Admin Dose Admin Dexamethasone Sodium Phosphate 10 mg ONCE ONCE IV 11/03/22 19:45 11/03/22 19:46 DC 11/03/22 19:44 10 MG Diphenhydramine HCl 25 mg ONCE ONCE IVP 11/03/22 20:30 11/03/22 20:31 DC 11/03/22 20:34 25 MG Ketorolac Tromethamine 15 mg ONCE ONCE IVP 11/03/22 18:45 11/03/22 18:46 DC 11/03/22 19:08 15 MG Labetalol HCl 10 mg ONCE ONCE IV 11/03/22 19:00 11/03/22 19:01 DC 11/03/22 19:06 10 MG Prochlorperazine Edisylate 10 mg ONCE ONCE IV 11/03/22 20:30 11/03/22 20:31 DC 11/03/22 20:32 10 MG Vital Signs/I&O 11/03/22 17:30 Temp 36.6 Pulse 76 Resp 18 B/P (MAP) 200/104 (136) Pulse Ox 98 O2 Delivery Room Air Progress Progress Note : Progress Note Patient seen and evaluated, resting comfortably in bed, no acute distress. Based on exam and symptoms, workup initiated including CBC, CMP, magnesium, ESR, CRP, EKG. 1938 labs reviewed. CBC grossly normal. ESR normal. CMP grossly normal. CRP 1.06. Patient reports she is still having pain. Will place patient on nonrebreather and try Decadron. 2017 patient reports continued pain. CT of the head ordered. Compazine and Benadryl ordered as well. 2037 CT reviewed. Negative for acute intracranial abnormality. 2056 patient currently reports some improvement in pain. Blood pressure has improved significantly, systolic in the 140s. I am comfortable with discharge at this time, patient agrees to discharge. Discharge instructions and return precautions provided. Initial ECG Impression Date: Nov 03, 2022 Initial ECG Impression Time: 18:02 Initial ECG Rate: 65 Initial ECG Rhythm: Normal Sinus Initial ECG Intervals: Normal Initial ECG Impression: Normal Initial ECG Comparisson: Unchanged Diagnostic Imaging Diagonstic Imaging: CT Plain Films/CT/US/NM/MRI: head Comments [facility], [place] NAME: [facility] REC#: [id number] PT STATUS: REG ER : 1960 PHYSICIAN: KASH BLANTON APRN ADMIT DATE: 11/03/22/ER Draft Date of Exam:11/03/22 CT HEAD WO EXAMINATION: CT head without contrast. TECHNIQUE: Multiple contiguous axial images were obtained through the brain without the use of intravenous contrast. All CT scans use one or more of the following dose optimizing techniques: automated exposure control, MA and/or KvP adjustment based on patient size and exam type or iterative reconstruction. HISTORY: Headache. COMPARISON: None available. FINDINGS: The ventricles and sulci are normal. No abnormal attenuation of brain parenchyma is present. No acute intracranial hemorrhage or abnormal extra-axial fluid collection is present. No hyperdense vessel. The calvarium is intact. Surgical changes of the left mastoid air cells. The visualized paranasal sinuses are clear. The orbits are normal. IMPRESSION: No acute intracranial abnormality. Dictated on workstation # [id number] Dict: 11/03/222030 Trans: 11/03/222033 [facility] [id number] Interpreted by: TERRY MAGALLANES DO Electronically signed by: Departure Impression Primary Impression: Headache Disposition: 01 HOME, SELF-CARE Condition: Stable Departure-Patient Inst. Decision time for Depature: 20:58 Referrals: NORM CABRAL DNP (PCP) Primary Care Physician CHERELLE CABRAL DO (Family) Primary Care Physician Patient Instructions: Headache, Adult Add. Discharge Instructions: You may take 800 mg of ibuprofen every 8 hours with food as needed for pain. You may take 1000 mg of Tylenol every 8 hours as needed for pain. Follow-up with your primary care provider. Return for severe headache, recurrent vomiting, vision changes, weakness, or any other new, concerning, or worsening symptoms. All discharge instructions reviewed with patient and/or family. Voiced understanding. KASH BLANTON APRN Nov 03, 2022 18:21
[2022-11-03 18:23] LABS: ERYTHROCYTE SEDIMENTATION RATE 11 MM/HR (0-30)
[2022-11-03] MEDS ORDERED: KETOROLAC INJ 15 MG/ML VIAL IVP ONE (18:45)
[2022-11-03] MEDS ORDERED: LABETALOL 5 mg/ml 4 ML SINGLE DOSE SYRINGE IV ONE (19:00)
[2022-11-03] MEDS ORDERED: dexAMETHasone INJ 10 MG/ML 1 ML VIAL IV ONE (19:45)
[2022-11-03] MEDS ORDERED: PROCHLORPERAZINE 10 MG/2ML INJ (COMPAZINE) IV ONE (20:30)
[2022-11-03] MEDS ORDERED: diphenhydrAMINE INJ 50 MG/ML VIAL IVP ONE (20:30)
--- NOTE | 2022-11-03 20:34 | Diagnostic Imaging Report ---
EXAMINATION: CT head without contrast. TECHNIQUE: Multiple contiguous axial images were obtained through the brain without the use of intravenous contrast. All CT scans use one or more of the following dose optimizing techniques: automated exposure control, MA and/or KvP adjustment based on patient size and exam type or iterative reconstruction. HISTORY: Headache. COMPARISON: None available. FINDINGS: The ventricles and sulci are normal. No abnormal attenuation of brain parenchyma is present. No acute intracranial hemorrhage or abnormal extra-axial fluid collection is present. No hyperdense vessel. The calvarium is intact. Surgical changes of the left mastoid air cells. The visualized paranasal sinuses are clear. The orbits are normal. IMPRESSION: No acute intracranial abnormality. Dictated by: Dictated on workstation # [id number]
[2022-11-03 21:07] VITALS: BP 142/63
== END 2022-11-03 21:08 | disposition home or self-care (01) ==
LOC: EDUNIT# 17:17 → ER 17:18
DX: R51.9 Headache, unspecified (principal); I10 Essential (primary) hypertension; Z79.899 Other long term (current) drug therapy; Z28.310 Unvaccinated for COVID-19
CPT/HCPCS: 36415; 70450; 80053; 83735; 85025; 85652; 86141; 93005; 93041